=== PATIENT | female | born 1945 | race Caucasian/White ===

== ENCOUNTER 2017-10-24 19:13 | Emergency (ER) | payer MEDICARE, OTHER ==
[~2017-10-24] VITALS: Ht 165.1 cm; Wt 90.7 kg
[~2017-10-24 19:13] MED LIST: ACETAMINOPHEN325 M1 PO; ASPIRIN EC81 MG PO; ATENOLOL25 MG PO; CRUTCH1 EACH MISC; FLAGYL500 MG PO; IBUPROFEN200 MG PO; MULTI-DAY VITA1 EACH PO; NITRO-BID1 INCH TOP; NITROSTAT0.4 MG SL; NORCO 5-325 TA1 EACH PO; PONARIS NASAL E30 ML PO
[2017-10-24] MEDS ORDERED: SYNTHROID50 MCG PO (19:50)
[2017-10-24] MEDS ORDERED: AUGMENTIN 875-1 EACH PO (21:12)
== END 2017-10-24 21:20 | disposition home or self-care (01) ==
LOC: ED 19:13
DX: K11.20 Sialoadenitis, unspecified (principal); I10 Essential (primary) hypertension; Z87.891 Personal history of nicotine dependence; Z88.5 Allergy status to narcotic agent; Z79.82 Long term (current) use of aspirin; Z79.899 Other long term (current) drug therapy
CPT/HCPCS: 99283

== ENCOUNTER 2017-11-25 17:21 | Observation (INO) | payer MEDICARE, OTHER ==
[~2017-11-25] VITALS: Ht 165.1 cm; Wt 93.1 kg
[~2017-11-25 17:21] MED LIST changes: +AUGMENTIN 875-1 EACH PO; +SYNTHROID50 MCG PO
--- NOTE | 2017-11-25 17:49 | EKG ---
[facility] [address] [place], [place] [address] Signed Normal sinus rhythm Normal ECG No previous ECGs available Confirmed by CHACE BULLOCK MD ([id number]) on 11/25/2017 5:49:15 PM Electronically Signed By: CHACE BULLOCK MD 11/25/17 1749 PATIENT NAME: KMKARLY V Electrocardiogram DATE OF : 49 PHYSICIAN: CHACE BULLOCK MD REPORT #: [id number] REPORT IS CONFIDENTIAL AND NOT TO BE RELEASED WITHOUT AUTHORIZATION
[2017-11-26] MEDS ORDERED: TORSEMIDE5 MG PO (13:39)
[2017-11-26] MEDS ORDERED: LEVOTHYROXINE125 MCG PO (13:50)
== END 2017-11-26 16:30 | disposition home or self-care (01) ==
LOC: ED 17:21 → CCU 17:22
PROVIDERS: ADMIT Internal Medicine
DX: R07.2 Precordial pain (principal); J44.9 Chronic obstructive pulmonary disease, unspecified; R09.02 Hypoxemia; J98.11 Atelectasis; I71.9 Aortic aneurysm of unspecified site, without rupture; I10 Essential (primary) hypertension; E03.9 Hypothyroidism, unspecified; M51.36 Other intervertebral disc degeneration, lumbar region; M19.90 Unspecified osteoarthritis, unspecified site; Z91.14 Patient's other noncompliance with medication regimen; Z79.1 Long term (current) use of non-steroidal anti-inflammatories (NSAID); Z79.82 Long term (current) use of aspirin; Z79.899 Other long term (current) drug therapy; Z87.891 Personal history of nicotine dependence; Z88.5 Allergy status to narcotic agent; Z88.8 Allergy status to other drugs, medicaments and biological substances; Z82.49 Family history of ischemic heart disease and other diseases of the circulatory system
CPT/HCPCS: 36415; 71045; 71260; 80048; 80053; 84484; 85025; 85379; 93005; 93010; 94761; 96372; 96374; 96375; 96376; 99285; G0378; J1650; J1885; J2060; J2405; J7030; Q9967

== ENCOUNTER 2018-12-13 12:13 | Emergency (ER) | payer MEDICARE, OTHER ==
[~2018-12-13] VITALS: Ht 165.1 cm; Wt 90.7 kg
[~2018-12-13 12:13] MED LIST changes: +LEVOTHYROXINE125 MCG PO; +PREDNISONE50 MG PO; +TORSEMIDE5 MG PO
--- OUTSIDE RECORDS SUMMARY | 2018-12-13 12:16 | XMS ---
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 ERobert VISIT COUNT (12 MO.) 2 STEW Jacinto TOTAL 2 NOTE: Visits indicate total known visits. 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
[2018-12-13] MEDS ORDERED: FLAGYL500 MG PO (18:18)
[2018-12-13] MEDS ORDERED: ONDANSETRON ODT8 MG PO (18:18)
[2018-12-13] MEDS ORDERED: CIPRO500 MG PO (18:18)
== END 2018-12-13 18:27 | disposition home or self-care (01) ==
LOC: ED 12:13
DX: K57.32 Diverticulitis of large intestine without perforation or abscess without bleeding (principal); I10 Essential (primary) hypertension; J44.9 Chronic obstructive pulmonary disease, unspecified; Z87.891 Personal history of nicotine dependence; Z90.710 Acquired absence of both cervix and uterus; Z90.49 Acquired absence of other specified parts of digestive tract; Z88.5 Allergy status to narcotic agent; Z88.8 Allergy status to other drugs, medicaments and biological substances; Z79.899 Other long term (current) drug therapy
CPT/HCPCS: 74177; 80053; 81001; 83690; 85025; 96361; 96374; 99284-25; J2405; J7030; Q9967

== ENCOUNTER 2021-04-21 09:38 | Inpatient (IN) | payer MEDICARE, OTHER ==
[~2021-04-21] VITALS: Ht 165.1 cm; Wt 92.4 kg
[~2021-04-21 09:38] MED LIST changes: +ADULT ASPIRIN R81 MG PO; -ASPIRIN EC81 MG PO; +BEVESPI AEROS10.7 GM INH; +CIPRO500 MG PO; +IPRAT-ALBUT 0.5-3 ML INH; +ONDANSETRON ODT8 MG PO; +PREDNISONE20 MG PO; +TORSEMIDE10 MG PO; +TRUNEB NEBULIZ1 EACH INH
--- OUTSIDE RECORDS SUMMARY | 2021-04-21 09:42 | XMS ---
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 Kareen VISIT COUNT (12 MO.) 1 STEW Jacinto TOTAL 1 NOTE: Visits indicate total known visits. ED/UCC VISIT TRACKING (12 MO.) 04/21/2021 09:39 [facility] [place] TYPE: Emergency COMPLAINT: - NAUSEA, VOMITING INPATIENT VISIT TRACKING (12 MO.) No inpatient visits to display in this time frame [email or web address]
--- NOTE | 2021-04-21 16:38 | NUR ---
RT CALLED AND PATIENT PLACED ON HI-FLOW OXYGEN VIA NASAL CANNULA. PT NOW ON 8 L AND SP02 IS 92%. PT ABLE TO TAKE HER MEDICATIONS WITHOUT DIFFICULTY. PRN TYLENOL TO BE GIVEN FOR HEADACHE.
--- NOTE | 2021-04-21 18:16 | NUR ---
PATIENT RESTING IN HER ROOM AND CURRENTLY 94% ON 8 L HIGH FLOW. LABS TO BE DRAWN AT 1900 FOR BMP. NEW IV TO BE STARTED. PT REMAINS ON FLUID RESTRICTION.
--- NOTE | 2021-04-21 19:35 | NUR ---
REPORT RECEIVED FROM DAY SHIFT RN. PT IS AWAKE IN BED WATCHING TV, DENIES NEEDS AT THIS TIME.
--- NOTE | 2021-04-21 20:49 | NUR ---
ASSESSMENT COMPLETED. BILATERAL LUNG BASES ARE DIMINISHED WITH FINE CRACKLES NOTED IN THE LEFT LOWER LOBE. PT STATES SHE HAS EXERTIONAL SHORTNESS OF BREATH WHEN GETTING UP AND DOWN TO THE COMMODE. AT REST, RR=16. PT GIVEN PRN TYLENOL FOR H/A (SEE EMAR). DISCUSSED PLAN OF CARE FOR EVENING, CALL LIGHT WITHIN REACH. NO FURTHER NEEDS.
--- NOTE | 2021-04-21 22:30 | NUR ---
PT HAD SHORT BURST OF PSVT, HR FROM 80'S UP TO 130'S, PT LYING IN BED, DID NOT NOTICE ANY SYMPTOMS. DR KRUEGER INFORMED, WILL INCREASE METOPROLOL DOSE.
--- NOTE | 2021-04-21 23:15 | NUR ---
IN TO GIVE ADDITIONAL LOPRESSOR AND DO ASSESSMENT. PT DENIES SOB, ALTHOUGH SHE DOES APPEAR TO BE SOB. SPO2 88% ON 8L, TURNED O2 UP TO 10L AND SATS UP TO 90%. DISCUSSED PRONING WITH PT, ASSISTED HER TO A SIDE LYING POSITION.
--- NOTE | 2021-04-22 01:16 | NUR ---
PT RESTING WITH EYES CLOSED, RESP EVEN UNLABORED, RR 15 SPO2 92% ON 10L HIGH FLOW NC. HR 65.
--- NOTE | 2021-04-22 02:21 | NUR ---
PT CALLS FOR PAIN MEDICATION FOR HEADACHE 3/10 TYLENOL GIVEN.
--- NOTE | 2021-04-22 02:40 | NUR ---
IN TO CHECK ON PT, PT REPORTS DIFFICULTY SLEEPING AND REQUESTS MEDICATION, ALSO STATES WHEN SHE TAKES MELATONIN SHE FEELS NAUSEATED. CALL TO DR KRUEGER, ORDER GIVEN FOR MELATONIN. ZOFRAN GIVEN WITH MED.
--- NOTE | 2021-04-22 03:31 | NUR ---
PT SATS HAVE BEEN 88-90%, OXYGEN TURNED UP TO 12L ON HIGH FLOW NASAL CANNULA.
--- NOTE | 2021-04-22 04:00 | NUR ---
PT FINALLY ASLEEP, WILL LET PT SLEEP FOR NOW.
--- NOTE | 2021-04-22 05:30 | NUR ---
IN TO GIVE LOPRESSOR AND DRAW AM LABS. PT HAD BEEN SLEEPING, STATES SHE GOT TWO HOURS OF SLEEP. WILL TRY TO GET BACK TO SLEEP, STATES HEADACHE GONE AFTER TYLENOL, NO REQUESTS.
--- NOTE | 2021-04-22 07:35 | NUR ---
REPORT REC'D FROM FILM HISTORIAN. PT REMAINS ON 12 L NC. PT HAD A LARGE VOID AT THIS TIME AND ALSO A LOOSE BM. PT THINKS THAT THE MELATONIN SHE HAD CAUSED HER DIARRHEA.
--- NOTE | 2021-04-22 08:15 | NUR ---
PATIENT AWAKE IN BED, BREAKFAST DELIVERED. FACE AND HANDS WASHED. VITALS CHARTED. CALL LIGHT IN REACH.
--- NOTE | 2021-04-22 08:34 | NUR ---
IN PATIENT'S ROOM FOR ASSESSMENT AND VP [employer]. PT UP TO BSC BUT UNABLE TO VOID. PT IS ON 11 L HIGH FLOW NASAL CANNULA. PT ENDORSES THAT SHE IS SHORT OF BREATH WITH ACTIVITY, "BUT I HAVE COPD, SO THAT DOESN'T HELP IT MUCH." ONCE PATIENT IS BACK IN BED, SHE RESTS WELL. PT REQUESTING A TYLENOL. PT HELPED BACK INTO NEW CLEAN PAJAMAS THAT HER DROPPED OFF FOR HER AT THE FRONT DOOR. HR IN THE 70s. LUNG SOUNDS HAVE FINE CRACKLES IN MID TO LOWER BASES AND ALSO EXP WHEEZES HEARD IN UPPER LUNGS. PT TO HAVE NEB TX. CONTINUE TO MONITOR.
[2021-04-22] MEDS ORDERED: LISINOPRIL-HCT1 EACH PO (11:00)
[2021-04-22] MEDS ORDERED: COMBIVENT RESPIM4 GM INH (11:00)
[2021-04-22] MEDS ORDERED: METOPROLOL SUC200 MG PO (11:01)
[2021-04-22] MEDS ORDERED: ROSUVASTATIN CA10 MG PO (11:01)
[2021-04-22] MEDS ORDERED: FREESTYLE LITE1 EAC1 (11:03)
--- NOTE | 2021-04-22 11:20 | NUR ---
PATIENT FINISHED HER 1200 ML D5 WATER FLUID BOLUS TO CORRECT HER SODIUM LEVELS. PATIENT NOW UP IN CHAIR RESTING. PT REMAINS ON 11 L HIGHFLOW. PT BEING GIVEN A PARTIAL SHOWER WITH TECHNICIAN TEST SYSTEMS AND GETTING HER HAIR WASHED. LUNCH ORDERED FOR PATIENT. PT'S LABS TO BE DRAWN AT [phone].
--- NOTE | 2021-04-22 12:04 | NUR ---
PATIENTS HAIR WASHED AND DRIED IN BR WHILE SITTING IN BATHROOM CHAIR. NC IN PLACE. PATINET TOLERATED WELL. BACK TO BED, LINENS CHANGED AND VITALS CHARTED. CALL LIGHT IN REACH
--- NOTE | 2021-04-22 12:58 | NUR ---
BLOOD DRAWN FROM IV SITE FOR 1230 BMP. PT TOLERATED WELL.
--- NOTE | 2021-04-22 14:00 | NUR ---
VITALS CHARTED. PATIENT HAS NO OTHER NEEDS AT THIS TIME
--- NOTE | 2021-04-22 16:45 | NUR ---
ASSESSMENT AND VITALS COMPLETE. PT RESTING IN BED ON 11L NC. PT STATES SHE ISN'T SHORT OF BREATH, BUT THAT SOMETIMES HER CHEST HURTS WITH DEEP BREATHS. PT ABLE TO SPEAK FULL SENTENCES W/O DIFFICULTY. ENCOUARGED PATIENT TO CONTINUE REPORTING HOW SHE FEELS TO HER NURSING STAFF. CALL LIGHT WITHIN REACH. PT WATCHING TV AT THIS TIME AND IN GOOD SPIRITS.
--- NOTE | 2021-04-22 16:54 | NUR ---
RT CALLED TO PLACE PATIENT ON CPAP AND VAPOTHERM PER DR. MONIQUE'S REQUEST.
--- NOTE | 2021-04-22 17:40 | NUR ---
RT WAS IN ROOM AND PLACED PATIENT ON VAPOTHERM AT 30L AND 70%. PATIENT TELLING RT WHEN HE WAS IN THE ROOM THAT SHE DIDN'T THINK SHE WAS GOING TO BE ABLE TO STAND WEARING A MASK OVER HER FACE. AFTER THIS, RT LEFT THE ROOM AND NOTE EVEN 5 MINUTES LATER, PATIENT CALLED AND THIS RN RESPONDED TO HER CALL LIGHT. PT NOTED TO BE TREMULOUS, TEARFUL, AND STATES, "I JUST CAN'T STAND THIS FLOW OF AIR. IT'S TOO MUCH. AND THE TUBING IS TOO HEAVY. THIS MUCH PRESSURE IS GOING TO CAUSE SO MANY BLOODY NOSES, AND I'VE ALREADY HAD A BLOODY NOSE." PATIENT SEEMED TO BE BECOMING MORE AND MORE ANXIOUS, AND THEREFORE PATIENT WAS TAKEN OFF THE VAPOTHERM AND PLACED BACK ON THE HIGH FLOW WALL NC AT 11 L. PATIENT THEN DISCUSSED WITH THIS RN SOME TRAUMATIC EVENTS THAT HAVE HAPPENED TO HER IN HER PAST, AND THAT SHE FEELS THE ANXIETY COMING BACK ON WHEN SHE HAS ANYTHING RESTRICTIVE ON HER FACE. SAT AND TALKED WITH PATIENT FOR A WHILE ABOUT THIS AND ATTEMPTED TO CALM HER AND REASSURE HER THAT SHE CAN REFUSE ANY TREATMENT, AND IF SHE DOESN'T WANT TO WEAR THE VAPOTHERM OR CPAP, THAT SHE MAY REFUSE. DISCUSSION ALSO HAD WITH PATIENT ABOUT HER ILLNESS, AND THE FACT THAT WHEN PEOPLE WORSEN WITH ANY RESPIRATORY ILLNESS, THAT BEFORE SOMEONE IS PLACED ON A VENTILATOR, THAT VAPOTHERM AND CPAP/BIPAP ARE MODALITIES THAT ARE EMPLOYED TO HELP THE PATIENT. PATIENT STILL STATES THAT SHE WOULD WANT TO BE ON A VENTILATOR IF SHE NEEDED TO BE. AGAIN, ATTEMPTS WERE MADE TO HELP PATIENT CALM DOWN. DISCUSSED WITH PATIENT AWAKE PRONING AND THE BENEFITS THAT THIS PROVIDES TO HER LUNGS, AND THAT SITTING UPRIGHT IN BED ISNT' ALWAYS THE BEST POSITION FOR HER LUNGS. PATIENT STATES, "I CAN TRY THAT TONIGHT MAYBE, BUT I DON'T WANT TO DO THAT RIGHT NOW SINCE I CAN'T WATCH TV, AND IF I CAN'T WATCH TV I'LL GO NUTS." AFTER LEAVING ROOM, DR. MONIQUE CALLED TO UPDATE ON THIS AND HOW THE PATIENT REACTED TO VAPOTHERM/CPAP. PT CURRENTLY 90% ON 11L. WILL CONTINUE TO MONITOR.
--- NOTE | 2021-04-22 20:10 | NUR ---
IN TO DO ASSESSMENT, HS MEDS, AND GIVE PRN TYLENOL. LUNGS DIM N BASES. ON 11L HIGH FLOW NASAL CANNULA. NO FURTHER NEEDS.
--- NOTE | 2021-04-22 22:00 | NUR ---
UP TO VOID/ BACK TO BED.
--- NOTE | 2021-04-23 00:50 | NUR ---
PT CALLS TO USE BSC, ASSESSMENT DONE UNCHANGED FROM PREVIOUS. NO C/O
--- NOTE | 2021-04-23 03:40 | NUR ---
PT UP TO BSC TO VOID, ASSESSMENT DONE. REQUESTS TYLENOL FOR HEADACHE.
--- NOTE | 2021-04-23 05:30 | NUR ---
PT RESTING, EYES CLOSED, HR 60 RR 20.
--- NOTE | 2021-04-23 07:06 | NUR ---
AWAKENS EASILY FOR THYROID PILL. STATES SHE DOES NOT HAVE AN APPETITE FOR BREAKFAST. DENIES PAIN.
--- NOTE | 2021-04-23 08:03 | NUR ---
vitals taken, coffee and water given to pt. no other needs at this time.
--- NOTE | 2021-04-23 09:05 | NUR ---
THIS RN IN TO ASSESS PT AND ADMINISTER ORDERED MEDICATIONS. PT ALERT AND ORIENTED X 3 ON 11 L HIGH FLOW NC. PT SPO2 AT 92%. PT DENIES HAVING PAIN AT THIS TIME AND IS VISIBLY SHAKING. PT DENIES CHILLS AND STATES SHE CAN BE SHAKY WHEN SHE IS NERVOUS. MEDICATIONS ADMINISTERED AT THIS TIME, IV REMDESIVIR NOW INFUSING AT ORDERED RATE. PT ASSESSED AT THIS TIME AND LUNGS ARE CLEAR IN UPPER LOBES AND CLEAR/DIM IN LOWER LOBES. PT REPORTS NO FURTHER NEEDS AT THIS TIME AND IS NOW EATING BREAKFAST AND ON THE PHONE. WILL CONTINUE PLAN OF CARE. CALL LIGHT IN REACH, BED IN LOWEST POSITION.
--- NOTE | 2021-04-23 10:33 | NUR ---
pt. requested a bible. margarine churn operator took one in to pt. no other needs at this time
--- NOTE | 2021-04-23 10:43 | NUR ---
PATIENT NOTED TO BE DESATURING SOME, AND CHECKED ON PATIENT. PATIENT WAS READJUSTING HER OXYGEN, AND WAS TEARFUL. PT STATES SHE IS VERY WORRIED AND ANXIOUS ABOUT HER , WHO IS IN THE ER RIGHT NOW BEING EVALUATED. INFORMED PATIENT THAT I WOULD BE HAPPY TO CALL DOWN TO ER AND SEE IF THE PATIENT WAS OKAY WITH HIS HAVE ANY INFORMATION REGARDING HOW HE IS DOING. REFRESH TECHNICIAN CALLS THIS RN BACK AND GIVES UPDATE ON PATIENT'S AFTER HE STATED IT WAS OKAY TO SHARE HIS INFORMATION. PT THANKFUL FOR THIS INFO. P NOW RESTING, ON 11 L STILL, AND SP02 IS 93%. CONTINUE TO MONITOR.
--- NOTE | 2021-04-23 11:17 | NUR ---
ATTEMPTED TO CONTACT PATIENT VIA PHONE DUE TO COVID PROCAUTIONS, NO ANSWER. WILL ATTEMPT TO CONTACT PATIENT AT A LATER TIME.
--- NOTE | 2021-04-23 11:32 | NUR ---
DR. MONIQUE IN TO SEE PATIENT. NO CHANGES TO PLAN OF CARE OR TREATMENT AT THIS TIME.
--- NOTE | 2021-04-23 12:19 | NUR ---
PATIENT IN GOOD SPIRITS AND VERY EXCITED THAT HER IS GOING TO BE ABLE TO COME IN. PATIENT STATES, "I DON'T THINK ILL BE HERE MUCH LONGER, DR. MONIQUE SEEMS ENCOURAGED." DISCUSSED WITH PATIENT HOW MUCH OXYGEN SHE IS NEEDING AND SHE STATES, "I'M NORMALLY IN THE 70-80s, USUALLY GET UPSET WHEN IT GETS UP TO THE 90s." CLARIFIED WITH PATIENT IF SHE WAS IN FACT TALKING ABOUT HER OXYGEN SATURATIONS AND SHE SAID YES. HIGH FLOW TURNED DOWN TO 8 L AND WILLC ONTINUE TO MONITOR.
--- NOTE | 2021-04-23 13:32 | NUR ---
PATIENT EATING LUNCH WITH HER IN ROOM. PT CONTINUES ON 8 L HIGH FLOW AND TOLERATING THIS WELL. PT IN VERY GOOD SPIRITS ABOUT HER BEING ABLE TO VISIT.
--- NOTE | 2021-04-23 13:53 | NUR ---
THIS RN IN TO ROOM AT THIS TIME, PT STATED HER , WHO IS A VISITOR, WAS SHAKING. PT'S SITTING IN WHEELCHAIR AND VISIBLY SHAKING. WAS ALERT AND ORIENTED AND DENIED HAVING CHILLS. ASKED IF HE WISHED TO RETURN TO THE E.R, STATED YES. STEPHANIE GUILLENA ASSISTED IN TRANSFERRING PT'S BACK TO THE E.R. PT CHECK ON AFTERWARDS, PT REPORTS NO NEEDS AT THIS TIME. PT DENIES SOB WHEN ASKED AND IS SITTING UP IN BED ALERT AND ORIENTED. WILL CONTINUE PLAN OF CARE. CALL LIGHT IN REACH, BED IN LOWEST POSITION.
--- NOTE | 2021-04-23 13:57 | NUR ---
assistant education director assisted pt to bedside commode
--- NOTE | 2021-04-23 14:22 | NUR ---
lubricating specialist took pt. toothpaste and tooth brush. pt stated she will brush in after her phone call. no other needs at thist geronimo
--- NOTE | 2021-04-23 17:14 | NUR ---
THIS RN IN TO BRING PT HER DINNER. PT LAYING IN BED AWAKE AND ALERT 6L O2 NC. SPO2 AT 90%. PT REPORTS NO NEEDS AT THIS TIME AND IS NOW EATING HER LUNCH. CALL LIGHT IN REACH, BED IN LOWEST POSITION, WILL CONTINUE PLAN OF CARE.
--- NOTE | 2021-04-23 19:30 | NUR ---
REPORT RECEIVED FROM TABBY BERMAN. PT IN BED, WATCHING TV, DENIES NEEDS.
--- NOTE | 2021-04-23 20:29 | NUR ---
ANTONELLA Rey called to say pt wanted someone to pray with her. I spoke with pt who indicated she was feeling alone, lonely, sad and scared. We talked of abiding presence of God, and of her family and her own manager stone who is currently unavailable. We recited together psalm 23, which pt stated was her favorite. We prayed together for comfort and peace. Left prayer shawl with RN to take into pt when next she went into the room.
--- NOTE | 2021-04-23 21:00 | NUR ---
IN TO DO ASSESSMENT AND HS MEDS, PRAYER SHAWL GIVEN TO PT AND SHE IS VERY APPRECIATIVE, CONTINUES TO BE CONCERNED ABOUT . PT IS ON 6L CURRENTLY WITH SPO2 95%, LUNGS SOUND CLEAR WITH EXP WHEEZES ON RIGHT SIDE. TYLENOL GIVEN PER REQUEST.
--- NOTE | 2021-04-23 23:44 | NUR ---
PT AWAKE IN ROOM, CONCERNED ABOUT , UP TO BSC THEN BACK TO BED.
--- NOTE | 2021-04-24 00:50 | NUR ---
PT SUDDENLY TOOK OXYGEN OFF, SATS WENT DOWN TO 76-77%. PT WAS VERY UPSET, STATED THAT THE OXYGEN WAS HURTING HER NOSE AND SHE HAS HAD PREVIOUS TRAUMA TO NOSE, "IM GOING TO HAVE A NERVOUS BREAKDOWN", "I WANT TO , I DONT WANT TO WEAR THIS ANYMORE". HAD LONG DISCUSSION WITH PT ABOUT WHAT SHE WAS FEELING, SHE IS FEELING LONELY "NOBODY CARES ABOUT ME". EVENTUALLY PT AGREED TO WEAR THE REGULAR NASAL CANNULA WHICH WAS NOT IRRITATING, SLOWLY TITRATED UP TO 4L, SPO2 CAME UP TO 87-88%. PT ALSO EVENTUALLY BECAME MORE POSITIVE ABOUT LIFE AND HER SITUATION AND WAS NOT UPSET. LIED BACK DOWN AND WILL NOW TRY TO GO TO SLEEP.
--- NOTE | 2021-04-24 04:15 | NUR ---
IN TO CHECK ON PT, PT AWAKE, STATES SHE HAS NOT BEEN ABLE TO GET TO SLEEP, TYLENOL GIVEN FOR HEADACHE.
--- NOTE | 2021-04-24 06:30 | NUR ---
PT AWAKE IN ROOM, IN A BETTER MOOD THIS MORNING, COFFEE GIVEN PER REQUEST.
--- NOTE | 2021-04-24 07:30 | NUR ---
REPORT RECIEVED. PATIENT IS SITTING UP IN BED. RESP THERAPY IN ROOM.
--- NOTE | 2021-04-24 09:09 | NUR ---
SITTING UP IN BEDE TO EAT BREAKFAST. DENIES PAIN, FEELS ANXIOUS. ASSESSMENT DONE. ROUTINE MEDICATIONS GIVEN. O2 AT 10 L HIGH FLOW IN [place]. PATIENT DENIES SHORTNESS OF BREATH.
--- NOTE | 2021-04-24 11:20 | NUR ---
c/o increased shortness of breath. RESP THERAPY NOTIFIED, NEB TREATMENT TO BE GIVEN.
--- NOTE | 2021-04-24 12:20 | NUR ---
ASSESSMENT DONE. IS CANDICE. PATIENT STATES SHE HAD AN ARGUMENT WITH HER OVER THE PHONE. PATIENT INDICATES SHE IS WORRIED ABOUT WHAT WILL HAPPEN TO HER WHEN SHE IS DISCHARGED HER IS GOING TO STAY WITH HIS [id number] WHEN HE IS DISCHARGED FROM HOSPIAL TODAY. TALKED WITH PATIENT ABOUT THIS, MORE CALM AFER OUR VISIT.
--- NOTE | 2021-04-24 14:15 | NUR ---
SITTING UP IN BED WATCHING TV, REMAINS ANXIOUS. NO FUTHER CAHNGES.
--- NOTE | 2021-04-24 16:15 | NUR ---
Update from RN, pt remains on high flow 02 at 92%. Pt was upset and has concerns for discharge and who will care for her as spouse dcd to home today with daughter in law. Rn prefers I don't speak with pt as she has anxiety and was upset earlier. She was able to settle pt with letting her know we would make sure she has a safe dc. Will follow up with pt when she is less ill.
--- NOTE | 2021-04-24 18:45 | NUR ---
HAS HAD POOR APPETITE ALL DAY. HAS BEEN VERY EMOTIONAL REGARDING DUE TO NOT RECIEVING PHONE CALLS FOR FRIENDS. O2 DECREASED TO 9 L NC.
--- NOTE | 2021-04-24 19:15 | NUR ---
REPORT RECIEVED, CARE OF PATIENT ASSUMED AT THIS TIME. PT DENIES NEEDSSPO2 = 93 PERCENT. CALL LIGHT WITHIN REACH.
--- NOTE | 2021-04-24 20:50 | NUR ---
MEDICATIONS ADMINISTERED. ASSESSMENT COMPLETED. PT COMPLAINS OF SHORTNESS OF BREATH. DISCUSSED INCREASING OXYGEN BUT PT REFUSES. CURRENTLY 93 PERCENT ON 10 L NC. PLAN OF CARE ESTABLISHED. WILL CONTINUE TO MONITOR.
--- NOTE | 2021-04-24 22:46 | NUR ---
pt states the nasal cannula is bothering her nose and does not want to wear it. pt agreeable to turning down the flow rate. now on 8 l nc, saturations at 89 percent. Pt given prn medications for sleep. will continue to monitor.
--- NOTE | 2021-04-25 00:44 | NUR ---
PT SLEEPING ON RIGHT SIDE, BREATHING EVEN CHRYSTAL UNLABORED RR=18. SPO2 = 96% ON 6L NC. CALL LIGHT AND PERSONAL BELONGINGS WITHIN REACH. WILL CONTINUE TO MONITOR.
--- NOTE | 2021-04-25 02:30 | NUR ---
PT SLEEPING. BREATHING EVEN AND UNLABORED. SPO2 =92%. RR= 20. CALL LIGHT WITHIN REACH. NO FURTHER ASSESSED NEEDS AT THIS TIME.
--- NOTE | 2021-04-25 05:10 | NUR ---
IN ROOM TO COMPLETE ASSESSMENT AND DRAW LABS. PT REPORTS HAVING SLEPT WELL THROUGH THE NIGHT. SPO2 =94% ON 7 L NC. RR=20-24 AT REST. CALL LIGHT WITHIN REACH. PT DENIES FURTHER NEEDS AT THIS TIME.
--- NOTE | 2021-04-25 08:00 | NUR ---
ASSESSMENT DONE. PATIENT IS IN GOOD SPIRITS TODAY. STATES SHE SLEPT VERY WELL LAST NIGHT.
--- NOTE | 2021-04-25 09:00 | NUR ---
ROUTINE MEDICATIONS GIVEN.
--- NOTE | 2021-04-25 10:30 | NUR ---
NO FUTHER CHANGES. SITTING UP IN BED WATCHING TV.
--- NOTE | 2021-04-25 11:48 | NUR ---
SITTING UP IN BED EATING LUNCH. PATIENT STATES SHE IS FEELING BETTER TODAY. O2 AT 7 LITERS. WILL BE TRANSFERRED TO MEDICAL FLOOR TODAY. IS ON TELE #2.
--- NOTE | 2021-04-25 12:30 | NUR ---
REPORT TO MED-SURG. TO MED-SURG VIA BED.
--- NOTE | 2021-04-25 12:54 | NUR ---
PT TRANSFERED TO 114 VIA BED, PT ALERT AND ORIENTED
--- NOTE | 2021-04-25 13:57 | NUR ---
Pt lives in [place] in a 1 story home with a ramp with her spouse. He discharged yesterday to daughter in laws home. He will return home when pt is discharged. Pt uses a cane, scooter, nebulizer, and 02 at home. Pt was using [facility] which sold to [employer]. Pt would like to change to [employer] and info given. 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 States they are financially well off. Plans on dc to home when discharged. She and spouse will assist each other. Daughter in law, Radha, will help with errands and shopping if needed.
--- NOTE | 2021-04-25 16:37 | NUR ---
PT MAINTAINING ON 7L OXYGEN AT 90-93% AT REST AND RECOVERS WELL AFTER ACTIVITY. SHE IS JUST BACK TO RECLINER AFTER UP TO USE BSC WITH STANDBY ASSIST. VOIDED 600ML CLEAR YELLOW URINE. SHE HAS REQUESTED FLUIDS TO EXCEED HER FLUID RESTRICTION THAT HAS BEEN DENIED. PT COOPERATIVE WITH THIS. NO ISSUES WITH ANXIETY SINCE TRANSFER OTHER THAN WHILE TAKING B/P WHEN THE CUFF TIGHTENED, PT WAS CONSOLED EASILY.
--- NOTE | 2021-04-25 18:12 | NUR ---
PATIENT SITTING UP IN CHAIR EATING DINNER. VITALS AND I&OS CHARTED, CALL LIGHT IN REACH, NO OTHER NEEDS AT THIS TIME
--- NOTE | 2021-04-25 18:27 | NUR ---
PT TRANSFERED TO [facility] FROM [facility] TODAY, HAS BEEN UP TO RECLINER, UPTO BEDSIDE COMMODE FREQUENT, SHE IS ON 7L OXYGEN SATURATIONS MONITOR VIA TELEMETRY. SHE IS A ONE PERSON STANDBY ASSIST TO TRANSFER. SHE DOES NOT REPORT ANY PAIN, SHE HAS DYSPNEA WITH ACTIVITY, NO ISSUES WITH ANXIETY THIS SHIFT AFTER FIRST V/S AFTER TRANSFER. HAS BEEN TALKING ON PHONE FREQUESTLY THIS SHIFT.
--- NOTE | 2021-04-25 19:05 | NUR ---
SHIFT REPORT RECEIVED FROM JOHN BERMAN. PT UP IN CHAIR NC @ 7L, SPO2 92%. NO NEEDS AT THIS TIME. CALL LIGHT IN REACH.
--- NOTE | 2021-04-25 21:18 | NUR ---
ASSESSMENT, VS AND I&O COMPLETED. PT APPEARS ANXIOUS, THERAPUTIC COMMUNICATION PROVIDED, ALL ACTIONS AND MEDS EXPLAINED. GCS 15, A&O X4. SPO2 92% ON 7L NC. LUNGS DIMINISHED IN ALL LOBES WITH CRACKLES IN LOWER LOBES. ABD SOFT, NONTENDER, BOWEL TOBES ACTIVE. PT HAS A SNALL RED AREA ON TOP OF HANDS THAT SHE STATES BEGAN YESTERDAY, AREA CLEANED, EDUCATION PROVIDED. CMS INTACT. HEART TONES REGUALR. SCHEDULED MEDS PROVIDED. SLEEP MED PROVIDED. IV WNL, CDI, FLUSHED WELL. EDUCATION PROVIDED CONCERNING FLUID RESRICTION, ICE WATER PROVIDED. NO OTHER NEEDS AT THIS TIME. CALL LIGHT IN REACH.
--- NOTE | 2021-04-25 22:59 | NUR ---
PT CALLS TO USE BSC, SBA. BACK TO BED. NO OTHER NEEDS. CALL LIGHT IN REACH.
--- NOTE | 2021-04-26 | NUR ---
PT RESTING IN BED. SPO2 92% ON 7L NC. CALL LIGHT IN REACH.
--- NOTE | 2021-04-26 02:00 | NUR ---
PT RESTING IN BED, EYES CLOSED SPO2 98% ON 7L NC. CALL LIGHT IN REACH.
--- NOTE | 2021-04-26 03:48 | NUR ---
PT SPO2 HAS BEEN IN HIGH 90s MOST OF THE NIGHT. NC O2 DECREASED TO 5L, SPO2 MAINTAINS. 95%
--- NOTE | 2021-04-26 04:50 | NUR ---
ASSESSMENT, VS AND I&O COMPLETED. PT UP TO BSC AND BACK TO BED, SBA. PT HAS DYSPNEA WITH ACTIVITY, SPO2 DROPS TO 89% BUT RECOVERS QUICKLY TO LOW 90s. LUNGS ARE COARSE IN ALL LOBES, NC @ 5L. REDNESS TO TOP OF LEFT HAND UNCHANGED. SKIN, WARM, DRY, APPROPRIATE COLOR. NO OTHER NEEDS. CALL LIGHT IN REACH.
--- NOTE | 2021-04-26 06:16 | NUR ---
PT SLEPT WELL THIS SHIFT. SPO2 RANDING IN THE HIGH 90s ON 7L NS, PT MOVED DOWN TO 5L NC AND HAS MAINTAINED SPO2 IN THE LOW 90s THIS MORNING. PT DOES HAVE SOB WITH ACTIVITY AND SPO2 DECREASES TO UPPER 80s BUT RECOVERS WITHIN A FEW MINUTES TO CURRENT BASELINE OF 92%-94% ON 5L. PT HAS A SMALL BRUISE AND RED AREA ON THE TOP OF THE LEFT HAND, CLEANED AND OPEN TO AIR. IV WNL, TOLERATED WELL. VSS. UOS. LUNGS ARE COARSE IN ALL LOBES. CMS INTACT. PT DENIES NAUSEA, LOOSE STOOLS AND HAS BEEN AFEBRILE THIS SHIFT.
--- NOTE | 2021-04-26 06:48 | NUR ---
SCHEDLED MED PROVIDED. PT UP TO BSC AND BACK TO BED, SBA. NO OTHER NEEDS AT THIS TIME. CALL LIGHT IN REACH. PT EDUCATION ABOUT FLUID RESTRICTION PROVIDED. PT VERBALIZES UNDERSTANDING.
--- NOTE | 2021-04-26 07:30 | NUR ---
Shift report received from ANTONELLA Jacobson. Pt resting in bed safely w/ call light in reach and high flow O2 on.
--- NOTE | 2021-04-26 08:25 | NUR ---
PT IS SITTING UP IN BED EATING BREAKFAST, HIGH FLOW O2 ON AT 5L VIA NC. PT DENIES SOB AT THIS TIME. MORNING ASSESMENT COMPLETED AND SCHEDULED MEDICATIONS GIVEN PER PROVIDER ORDER. CALL LIGHT IN REACH, NO OTHER NEEDS AT THIS TIME.
--- NOTE | 2021-04-26 08:54 | NUR ---
OXIMETRY READING ON TELEMETRY IS NOT MAINTAINING ACCURATE WAVEFORM DEPITE EFFERTS TO REPOSITION AND REPLACE. BEDSIDE OXIMETRY IS PLACED WITH IMPROVED WAVEFORM READING, PT IS ON 6L OXYGEN WITH OXYGEN SATURATIONS 93-96%.
--- NOTE | 2021-04-26 10:33 | NUR ---
Pt offered to prone, but pt asked to sit up a little longer so that she could talk to her .
--- NOTE | 2021-04-26 10:51 | NUR ---
PT REORTS SHE IS WILLING TO LEAN SIDE TO SIDE, SHE SAID "I ABSOLUTLY CAN NOT LAY ON MY STOMACH AT ALL!" PT IS LAYING TO HER RIGHT SIDE, 93% ON 6L N.C. HIGH FLOW AT THIS TIME.
--- NOTE | 2021-04-26 11:00 | NUR ---
Brief visit with pt, no change in plan for dc. Feeling slightly better. Remains on .
--- NOTE | 2021-04-26 12:00 | NUR ---
PT ENCOURAGED TO LAY PRONE OR ON SIDE, BUT PT REFUSES. PROVIDER IN ROOM TO ASSES PT. PT AGREEABLE TO SITTING UP IN CHAIR. PT ON 6L O2 VIA NC, SATS 90%. CALL LIGHT IN REACH
--- NOTE | 2021-04-26 12:32 | NUR ---
PT DENIES INTEREST IN SHOWERING, SHE HAS TOOTH PASTE AND TOOTH BRUSH. SHE IS CURRENTLY SITTING UP IN SANDEEP KRISHNAMURTHY RN IN ROOM CHANGING BED LINENS.
--- NOTE | 2021-04-26 14:30 | NUR ---
SECOND ASSESMENT COMPLETED. PT SITTING UP IN CHAIR W/ CALL LIGHT IN REACH. PT REMAINS 89-90% ON 6L O2 VIA NC. PT ENCOURAGED TO LAY IN BED AND PRONE BUT PT STILL REFUSING.
--- NOTE | 2021-04-26 16:39 | NUR ---
PT IS SLEEPING IN RECLINER AT THIS TIME. OXYGEN SATURATION IS 91% ON 6L OXYGEN HIGH FLOW N.C., PT REFUSES TO PRONE, OR USE BIPAP.
--- NOTE | 2021-04-26 17:31 | NUR ---
PT CALLED FOR ASSISTANCE, SBA TO BSC. PT THEN AMBULATED IN ROOM, SATS REMAINED 90% ON 6L O2. PT SITTING UP IN CHAIR W/ CALL LIGHT IN REACH. PT EATING DINNER.
--- NOTE | 2021-04-26 17:53 | NUR ---
PT UP IN CHAIR FOR MEALS, PT ENCOURAGED THROUGHOUT THE SHIFT TO REST IN BED IN THE PRONE POSITION BUT REFUSES TO.
--- NOTE | 2021-04-26 19:05 | NUR ---
SHIFT REPORT RECEIVED FROM SANDEEP BERMAN. PT UP IN CHAIR. NC @ 6L. NO NEEDS AT THIS TIME. CALL LIGHT IN REACH.
--- NOTE | 2021-04-26 21:00 | NUR ---
ASSESSMENT, VS AND I&O COMPLETED. PT UP TO BSC AND BACK TO CHAIR, SPO2 DECLINES TO UPPER 80S WITH ACTIVITY BUT RECOVERS QUICKLY. NC @ 6L. GCS 15, A&O X4, PT APPEARS MORE RELAXED TODAY, ASKING QUESTIONS. LUNGS CLEAR IN UPPER LOBES AND CRACKLES IN LOWER LOBES. HEART TONES REGULAR. ABD SOFT, NONTENDER, BOWEL TONES ACTIVE. IV WNL, CDI, FLUSHED WELL. CMS INTACT. RED AREA ON TOP OF LEFT HAND UNCHANGED. SCHEDULED MEDS PROVIDED. NO OTHER NEEDS AT THIS TIME. CALL LIGHT IN REACH.
--- NOTE | 2021-04-26 23:07 | NUR ---
PT CALLS TO HAVE BSC EMPTIED AND TOOTHBRUSH BASIN EMPTIED, PROVIDED. PT ROOM ARRANGED FRO BED. SPO2 94% ON 6L NC. NO OTHER NEEDS AT THIS TIME. CALL LIGHT IN REACH.
--- NOTE | 2021-04-26 23:47 | NUR ---
PT RESTING IN BED, EYES CLOSED. RR EVEN, UNLABORED. CPOX 92% ON 6L NC. CALL LIGHT IN REACH.
--- NOTE | 2021-04-27 01:09 | NUR ---
PT UP TO BSC AND BACK TO BED. PT APPEARS ANXIOUS. THERAPUTIC COMMUNICATION PROVIDED. NO OTHER NEEDS. CALL LIGHT IN REACH.
--- NOTE | 2021-04-27 03:03 | NUR ---
PT RESTING IN BED, EYES CLOSED. RR EVEN, UNLABORED. SPO2 92% ON 6L NC. CALL LIGHT IN REACH.
--- NOTE | 2021-04-27 05:00 | NUR ---
PT UP TO BSC AND BACK TO BED. SPO2 DROPS INTO UPPER 80s WITH ACTIVITY ON 6L NC. UPPER LUNG LOBES CLEAR AND LOWER LOBES COURSE. IV WNL. PT CALM, ASKING QUESTIONS. CPOX 94% AT REST ON 6L NC. ASSESSMENT, VS AND I&O COMPLETED. NO OTHER NEEDS AT THIS TIME. CALL LIGHT IN REACH.
--- NOTE | 2021-04-27 06:49 | NUR ---
SCHEDULED MED PROVIDED. NO OTHER NEEDS. CALL LIGHT IN REACH.
--- NOTE | 2021-04-27 07:30 | NUR ---
SHIFT REPORT RECEIVED FROM ANTONELLA CRUZ, PT RESTING IN BED SAFELY, 6L O2 VIA NC, SATS 91%. PT DENIES SOB, CALL LIGHT IN REACH.
--- NOTE | 2021-04-27 08:48 | NUR ---
PT UP TO BATHROOM, PT VOIDED, AND IS NOW BACK IN BED RESTING SAFELY W/ CALL LIGHT IN REACH. PT SOB W/ ACTIVITY, SATS 89-90% ON 6L HIGH FLOW VIA NC. MORNING ASSESMENT COMPLETED AND SCHEDULED MEDS GIVEN PER PROVIDER ORDER. PT VERY ANXIOUS SPOUSE WAS ADMITTED TO HOSPITAL LAST NIGHT, PRN ANXIETY MEDS GIVEN PER PT REQUEST/ PROVIDER ORDER.
--- NOTE | 2021-04-27 10:00 | NUR ---
Pt WORKING W/ PT. O2 SATS 88-91% ON 6L VIA HIGH FLOW NC.
--- NOTE | 2021-04-27 10:13 | NUR ---
PHYSICAL FINISHED WORKING WITH PATIENT AT THIS TIME. ILIANA REPORTS THAT PT DID NOT MAINTAIN OXYGEN SATURATION WHILE PERFORMING EXERCISES. IN TO SEE PT AND DISCUSS SAFE DISCHARGE PLAN
--- NOTE | 2021-04-27 11:23 | NUR ---
PATIENT SITTING UP IN BED. PATIENTS FAMILY MEMBER WILL BE PICKING UP HER VAN SMITH TODAY, THIS EVENTS MANAGER WILL TAKE IT TO THE PRESS SETUP OPERATOR IN [facility]. I&OS CHARTED. LUNCH ORDERED PATIENT REFUSED SHOWER, STATES SHE JUST DOESN'T FEEL UP TO IT YET. PATIENT STATES SHE IS UNABLE TO LAY ON HER STOMACH, BUT WILL REPOSITIION TO HER SIDE FOR AWHILE. CALL LIGHT IS IN EASY REACH, NOOTHER NEEDS
--- NOTE | 2021-04-27 12:27 | NUR ---
PT IS RESTING IN BED SAFELY W/ CALL LIGHT IN REACH. O2 SATS 90% ON 6L VIA NC. PT DENIES SOB BUT C/O FEELING TIRED.
--- NOTE | 2021-04-27 13:18 | NUR ---
PT SITTING UP IN CHAIR. O2 SATS 90% ON 6L HIGH FLOW VIA NC. PT ENCOURAGED TO PRONE, BUT REFUSED TO STATING SHE DOES NOT LIKE TO LAY ON HER STOMACH.
--- NOTE | 2021-04-27 14:51 | NUR ---
SPOKE WITH PATIENT BY PHONE IN ROOM. PATIENT SOB WITH CONVERSATION. SHE STATES SHE FEELS "VERY TIRED AND MY BREATHING ISN'T EASY". HER IS STILL AT [facility] AND SHE SAYS "HE HAS BEEN TOUCH AND GO". DISCUSSED DISCHARGE PREFERENCE. SHE WANTS TO RETURN HOME, BUT SHE DOESN'T FEEL SHE IS READY TO DO THAT YET. "I DON'T THINK I CAN BE UP DOING ANYTHING MUCH". SHE HAS NO FAMILY. HER HAS FAMILY IN THE AREA BUT SHE DOES NOT THINK THEY WILL BE AVAILABLE TO HELP HER MUCH. SHE STATES THEY ARE TALKING ABOUT FINDING SOMEONE, FRIENDS OR FAMILY THAT CAN COME IN FOR SHORT TIMES BUT THEY DON'T WANT TO EXPOSE THEM TO COVID. THEY DO NOT HAVE FUNDS TO PAY FOR THIS KIND OF CARE. "I HOPE A COUPLE DAYS WILL MAKE A BIG DIFFERENCE". SHE HAS NO QUESTIONS AT THIS TIME REALLY. SHE OBVIOUSLY GETS FATIGUED EASY WITH JUST CONVERSATION. REMINDED HER TO LET NURSES KNOW IF SHE HAS CONCERNS OR QUESTIONS.
--- NOTE | 2021-04-27 15:09 | NUR ---
PT SITTING UP IN CHAIR, W/ CALL LIGHT IN REACH. PT ENCOURAGED TO PRONE, BUT REFUSED STATING SHE WANTED TO STAY SITTING UP. PT AMBULATED TO BATHROOM, VOIDED AND RETURNED TO CHAIR. PT NOTICABLY SOB W/ ACTIVITY. PT DESATED TO 87%, BUT AFTER RESTING FOR A MINUTE SATS INCREASED TO 91%.
--- NOTE | 2021-04-27 16:00 | NUR ---
RT IN ROOM TO ADMINISTER DUONEB TO PT. PT SITTING UP IN CHAIR 90% ON 8L HIGH FLOW VIA NC.
--- NOTE | 2021-04-27 17:23 | NUR ---
PATIENT SITTING UP IN CHAIR, VITALS AND I&OS CHARTED. PATIENT REQUESTED ONLY MILK FOR DINNER. CALL LIGHT IN REACH
--- NOTE | 2021-04-27 18:16 | NUR ---
PT UP IN CHAIR THROUGHOUT SHIFT. PT ENCOURAGED MULTIPLE TIMES TO PRONE, BUT PT REFUSED ADMITTEDLY STATING SHE CANNOT LAY ON HER STOMACH. O2 SATS 89-91% ON 8L HIGH FLOW VIA NC. SBA TO BATHROOM, PT NOTICABLY SOB W/ ACTIVITY AND INCREASED WORK OF BREATHING. DISCUSSED W/ PT NEED AND BENEFIT OF BEING PUT ON VAPOTHERM, BUT PT REFUSED STATING THAT THE INCREASE OF NOISE CAUSES ANXIETY. PT'S APPETITE HAS DECREASED TODAY, BUT FLUID INTAKE AND UO REMAINS SUFICIENT. PT WORKED W/ PHYSICAL THERAPY AND IT WAS NOTED THAT THIS WILL BE A DIFICULT DISCHARGE PT WILL NOT HAVE ANY HELP AT HOME DUE TO SPUOSE BEING HOSPITALIZED WELL.
--- NOTE | 2021-04-27 19:10 | NUR ---
SHIFT REPORT RECEIVED FROM SANDEEP BERMAN. PT UP IN CHAIR. SPO2 92% ON 7L NC. CALL LIGHT IN REACH.
--- NOTE | 2021-04-27 21:45 | NUR ---
ASSESSMENT,VS AND I&O COMPLETED. SCHEDULED MEDS PROVIDED. PRN SLEEP MED PROVIDED. GCS 15, A&O X4. COPX 92% ON 7L NC. LUNGS CLEAR IN UPPER LOBES AND FINE CRACKLES IN LOWER LOBES. HEART TONES REGULAR. ABD SOFT, NONTENDER, BOWEL TONES ACTIVE. PT UP TO BSC AND BACK TO BED, SPO2 DROPS INTO UPPER 80s WITH ACTIVITY BUT RECOVERS QUICKLY. CMS INTACT. IV WNL, CDI, FLUSHED WELL. SNACK AND MILK PROVIDED. NO OTHER NEEDS AT THIS TIME. CALL LIGHT IN REACH.
--- NOTE | 2021-04-27 23:39 | NUR ---
PT RESTING IN BED, WATCHING TV. CPOX 93% ON 7L NC. CALL LIGHT IN REACH.
--- NOTE | 2021-04-28 01:24 | NUR ---
PT RESTING IN BED, EYES CLOSED. RR EVEN, UNLABORED. SPO2 92@ ON 7L NC. CALL LIGHT IN REACH.
--- NOTE | 2021-04-28 03:29 | NUR ---
PT RESTING IN BED, EYES CLOSED. RR EVEN, UNLABORED. CPOX 93% ON 7L. CALL LIGHT IN REACH.
--- NOTE | 2021-04-28 06:00 | NUR ---
ASSESSMENT COMPLETED. LUNGS HAVE FINE CRACKLES IN UPPPER LOBES AND CRACKLES IN LOWER LOBES. SPO2 92% @ 7L NC. IV WNL. CMS INTACT. PT DENIES SOB OR PAIN. NO OTHER NEEDS. CALL LIGHT IN REACH.
--- NOTE | 2021-04-28 07:30 | NUR ---
Shift report received from ANTONELLA Jacobson, pt resting in bed safely w/ call light in reach. O2 sats 91% on 7L high flow NC.
--- NOTE | 2021-04-28 08:00 | NUR ---
patient sitting up in bed. says she doesnt want to get up to chair and that she doesnt want to eat breakfast. warm washcloth offered. shower offered and refused.
--- NOTE | 2021-04-28 08:00 | NUR ---
PT SITTING UP IN BED W/ CALL LIGHT IN REACH. PT OFFERED TO GET UP IN CHAIR FOR BREAKFAST BUT DECLINED STATING SHE IS NOT HUNGRY AND DOESNT WANT TO GET UP RIGHT NOW. O2 STATS 84% ON 7L HIGH FLOW VIA NC.
--- NOTE | 2021-04-28 10:00 | NUR ---
PT SITTING UP IN BED O2 SATS 85% ON 7L HIGH FLOW VIA NC. MORNING ASSESMENT COMPLETED AND SCHEDULED MEDS GIVEN PER PROVIDER ORDERS. PT ENCOURAGED TO PRONE OR LAY ON SIDE BUT PT REFUSES STATING SHE CAN'T DUE TO PTSD. PROVIDER IN ROOM, PT EDUCATED ON CONDITION AND UPDATED ON PLAN OF CARE. PT RECEPTIVE TO DISCUSION.
--- NOTE | 2021-04-28 12:11 | NUR ---
PT RESTING IN BED W/ CALL LIGHT IN REACH AND 7L HIGH FLOW VIA NC. PT REFUSED LUNCH STATING SHE WOULD ONLY LIKE A GLASS OF MILK.
--- NOTE | 2021-04-28 12:51 | NUR ---
PT'S O2 SATS CHECKED, 88% ON 7L HIGH FLOW VIA NC. PT DENIES SOB.
--- NOTE | 2021-04-28 14:02 | NUR ---
PT SITTING UP IN BED WITH CALL LIGHT IN REACH. PT ON 7L HIGH FLOW VIA NC, O2 SATS 88%. PT STILL DECLINES TO PRONE, DESPITE EDUCATION.
--- NOTE | 2021-04-28 16:00 | NUR ---
PT HAS REDDEND AREA TO LEFT SIDE OF PANIS. NIO FOR NYSTATIN PLACED AND POWDER APPLIED TO AREA.
--- NOTE | 2021-04-28 18:00 | NUR ---
PT ATE APPROX 10% OF HER DINNER AND THEN STATED SHE WAS FULL. O2 SATS REMAIN 88% ON 7L HIGH FLOW VIA NC
--- NOTE | 2021-04-28 18:48 | NUR ---
Patient resting awake in bed, no notable distress. Patient remains on 7L per nc, respirations non labored. Patient reports she is lonely and misses her . Visited with patient for a little while. No further needs. Personal supplies and call light within reach.
--- NOTE | 2021-04-28 19:30 | NUR ---
RECEIVED REPORT FROM ANTONELLA HOPKINS. pt RESTING IN BED. NO REQUESTS AT THIS TIME. CALL LIGHT WITHIN REACH.
--- NOTE | 2021-04-28 19:55 | NUR ---
IN TO DO MEDICATIONS AND ASSESSMENT. pt SITTING UP IN BED. DENIES PAIN, REPORTS A LITTLE SOB, NO CHANGE FROM THIS AM. CRACKLES IN BASES. SKIN CARE PROVIDED TO LEFT SIDE ABD. pt VERBALIZED UNDERSTANDING OF RESPIRATORY CARE AND DEMONSTRATED IS. NO FURTHER REQUESTS AT THIS TIME. CALL LIGHT WITHIN REACH.
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
--- NOTE | 2021-04-29 00:38 | NUR ---
ROUNDED ON pt. RESTING IN BED ON RIGHT SIDE. RESPIRATIONS REGULAR. CALL LIGHT WITHIN REACH.
--- NOTE | 2021-04-29 02:40 | NUR ---
ROUNDED ON pt. RESTING ON RIGHT SIDE. CALL LIGHT WITHIN REACH.
--- NOTE | 2021-04-29 04:30 | NUR ---
ROUNDED ON pt. pt IS PRONING WITH EYES CLOSED. CALL LIGHT WITHIN REACH.
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
--- NOTE | 2021-04-29 07:15 | NUR ---
SHIFT REPORT FROM NURSE COBB. PT IS UP ON BSC. DENIES NEEDS AT THIS TIME. CALL LIGHT WITHIN REACH.
--- NOTE | 2021-04-29 08:50 | NUR ---
IN ROOM FOR MORNING MEDS. PT REPORTS SLIGHT NAUSEA AND PAIN IN CHEST/LUNGS. SPO2 ON 7LNC 91%. PT APPEARS NERVOUS/ANXIOUS BUT IS COMPLIANT AND ORIENTED. REDNESS CONTINUES UNDER PANUS ON LEFT SIDE; DESENEX POWDER APPLIED. PT HAD 2 EPISODES OF SOFT STOOL THEREFORE LAXATIVES/STOOL SOFTENERS HELD. PT HAS BEEN INDEPENDENT TO [facility]. LUNG SOUNDS CLEAR EXCEPT LLL WHICH HAS CRACKLES. CMS INTACT, BOWEL TONES ACTIVE. PT COMPLIANT WITH FLUID RESTRICTION. TRACE EDEMA IN BLE. PHYSICAL THERAPY IN ROOM TO DO PT WITH pt. NO FURTHER NEEDS AT THIS TIME. CALL LIGHT WITHIN REACH.
--- NOTE | 2021-04-29 10:19 | NUR ---
BACK IN ROOM TO ADMINISTER PRN TYLENOL FOR REPORTED LUNG/CHEST PAIN. PT RATES THIS 4/10. SPOKE WITH DR BULLOCK RE: THIS SYMPTOM AND WE WILL START WITH TYLENOL AND CONTINUE TO MONITOR. PT REMAINS ANXIOUS BUT COOPERATIVE AND INTERACTIVE WITH THIS NURSE. CALL LIGHT WITHIN REACH. WILL CONTINUE TO MONITOR.
--- NOTE | 2021-04-29 10:52 | NUR ---
CHECKED ON PT; PT SITTING UP IN BED, TALKING ON CELL PHONE. NO APPARENT SIGNS OF DISTRESS. CALL LIGHT WITHIN REACH.
--- NOTE | 2021-04-29 11:55 | NUR ---
TOOK PT HER LUNCH. PT REPORTS THAT HER PAIN IS IMPROVED FOLLOWING PRN TYLENOL. PT DENIES FURTHER NEEDS AT THIS TIME. CALL LIGHT WITHIN REACH
--- NOTE | 2021-04-29 13:30 | NUR ---
CHARGE NURSE NILS REPORTS THAT SHE WAS IN PT ROOM AND ASSISTED PT BACK FROM TOILET. PT HAD REMOVED HER O2 AND GONE TO BATHROOM UNASSISTED. BED LINENS CHANGED, NEW PJ PANTS PROVIDED FOR PT. PT UP IN CHAIR. CALL LIGHT WITHIN REACH.
--- NOTE | 2021-04-29 17:20 | NUR ---
IN ROOM FOR EVENING MEDS AND ASSESSMENT. PT REPORTS FEELING MUCH BETTER TODAY OVERALL. SPO2 HAS REMAINED STEADY IN THE 90S ON 7L NC. LUNG SOUNDS CLEAR WITH THE EXCEPTION OF RLL WHERE FINE CRACKLES ARE HEARD. PT HAD A BM EARLIER TODAY. PT REPORTS NO PAIN AT THIS TIME. DINNER BROUGHT TO PT; PT UP IN CHAIR EATING. CALL LIGHT WITHIN REACH. NO FURTHER NEEDS AT THIS TIME.
--- NOTE | 2021-04-29 19:30 | NUR ---
RECEIVED REPORT FROM NATONELLA SEXTON. pt SITTING UPRIGHT IN BED. NO REQUESTS AT THIS TIME. CALL LIGHT WITHIN REACH.
--- NOTE | 2021-04-29 21:30 | NUR ---
IN TO DO ASSESSMENT. pt RESTING IN BED. WORK OF BREATHING CONSISTENT WITH PRIOR NIGHT. O2 SAT READ 79% WITH A GOOD WAVE FORM. ENCOURAGED pt TO SIT UP AND FOCUS ON BREATHING. pt REQUESTED A NEB, SCHEDULED NEB GIVEN (SEE MAR). ASSESSMENT DONE. CRACKLES IN BASES. INCREASED O2 TO 10L WHICH IS HIGH THE pt IS ABLE TO TOLERATE WITHOUT "HAVING TOO MUCH PRESSURE AND I'LL GET A BLOODY NOSE" pt AGITATED WHEN ATTEMPTING TO TITRATE O2. SAT WITH pt AND DISCUSSED PAST HISTORY AND IMPORTANCE OF OXYGEN. UNABLE TO FIND ANY POTENTIAL TREATEMENTS. PRN ANXIETY MED GIVEN WITH SCHEDULED MEDICATIONS, pt REQUESTED SOMETHING TO HELP HER SLEEP, REMINDED pt SHE WAS ABLE TO SLEEP LAST NIGHT WITHOUT MEDICATIONS. pt INSISTED HAVING MEDICATION (SEE MAR). pt INDEPENDENT IN TO BSC. WILL BE BACK TO CHECK O2 SAT IF pt AWAKE, pt AGREEABLE TO PLAN. CALL LIGHT WITHIN REACH.
--- NOTE | 2021-04-29 21:37 | NUR ---
DR BULLOCK NOTIFIED ABOUT pt O2 SAT BEING 85% ON 10L. NO NEW ORDERS AT THIS TIME.
--- NOTE | 2021-04-29 22:22 | NUR ---
ROUNDED ON pt. O2 SAT 84% ON 10L O2. NO CHANGES IN pt CONDITION. pt HAS DONE PM CARES. NO FURTHER REQUESTS AT THIS TIME. pt DID ASK ABOUT A SLEEP AID, REMINDED pt SHE ALREADY TOOK HER MEDICATION. CALL LIGHT WITHIN REACH.
--- NOTE | 2021-04-30 | NUR ---
ROUNDED ON pt. RESTING ON RIGHT SIDE, EYES CLOSED, RESPIRATIONS REGULAR. CALL LIGHT WITHIN REACH.
--- NOTE | 2021-04-30 02:08 | NUR ---
ROUNDED ON pt. RESTING ON LEFT SIDE. CALL LIGHT WITHIN REACH.
--- NOTE | 2021-04-30 04:00 | NUR ---
ROUNDED ON pt. RESTING IN BED ON LEFT SIDE. CALL LIGHT WITHIN REACH.
--- NOTE | 2021-04-30 06:20 | NUR ---
IN TO DO ASSESSMENT. pt WOKE TO VOICE. REPORTED SHE SLEPT "PRETTY GOOD" SCHEDULED MEDICATION GIVEN (SEE MAR). VITALS AND I&O RECORDED. ASSESSMENT DONE. NO CHANGES. pt REMAINS ON 10L O2 VIA NC. WARM BLANKET PROVIDED. BSC HAD SOFT STOOL AND URINE. NO FURTHER REQUESTS AT THIS TIME. CALL LIGHT WITHIN REACH.
--- NOTE | 2021-04-30 07:32 | NUR ---
REPORT RECIEVED FROM ANTONELLA COBB. PT REPORTEDLY SLEPT WELL AFTER TRAZADONE. REFUSED TO HAVE O2 TURNED UP OR US MASK, SATS MID 80'S
--- NOTE | 2021-04-30 10:31 | NUR ---
PATIENT IN BED RESTING. VITALS AND I&O'S CHARTED. CALL LIGHT IN REACH, NO FURTHER NEEDS AT THIS TIME.
--- NOTE | 2021-04-30 11:33 | NUR ---
PT CALLED OT ASK FOR COFFEE. BREWED FRESH POT AND GIVEN TO PT. DENIES CONCERNS. STATES SHE FEELS THE SAME THIS MORNING.
--- NOTE | 2021-04-30 13:25 | NUR ---
Talked with ANTONELLA Fleming. She stated pt was in a better place mentally but physically still weak and heavily reliant oxygen support. She did indicate that pt could probably talk for a short while on telephone. Attempted to call pt, but no answer on room phone. Offered prayer for healing and perseverance.
--- NOTE | 2021-04-30 14:45 | NUR ---
PATIENT SITTING UP IN BED TALKING ON PHONE. O2 LOW, RN NOTIFIED. VITALS AND I&O'S CHARTED. CALL LIGHT IN REACH. NO FURTHER NEEDS AT THIST FELIX.
--- NOTE | 2021-04-30 16:09 | NUR ---
PT IN BED TALKING WITH DR BULLOCK. THEN TALKING ON PHONE. SATS IN 80'S BUT DENIES SOB.
--- NOTE | 2021-04-30 16:29 | NUR ---
CHECKED ON PT. SHE DENIES NEEDS OR CONCERNS.
--- NOTE | 2021-04-30 19:21 | NUR ---
REPORT RECEIVED FROM DAY SHIFT RN. PT LYING IN BED ALERT AND ORIENTED TALKING ON PHONE. DENIES NEEDS AT THIS TIME. CALL LIGHT IN REACH.
--- NOTE | 2021-04-30 21:09 | NUR ---
EVENING ASSESSMENT COMPLETE. SCHEDULED MEDS ADMINISTERED PER EMAR. PT HAD JUST BEEN UP TO PLUG IN PHONE. INCREASED RESPIRATIONS NOTED. SpO2 93% ON 10L/NC. HR 100'S. PT DENIES CHEST PAIN. REPORTS SOB WITH ACTIVITY BUT NOT AT REST. CRACKLES HEARD IN LUNG BASES. DENIES PAIN OR NAUSEA. FRESH WATER PROVIDED. PT DENIES QUESTIONS OR CONCERNS AT THIS TIME. CALL LIGHT IN REACH.
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
--- NOTE | 2021-05-01 00:45 | NUR ---
PT LYING IN BED ON RIGHT SIDE. RESPIRATIONS EVEN. NASAL CANNULA IN PLACE.
--- NOTE | 2021-05-01 02:52 | NUR ---
PT RESTING ON RIGHT SIDE. EYES CLOSED. RESPIRATIONS EVEN. 9L/NC IN PLACE. CALL LIGHT IN REACH.
--- NOTE | 2021-05-01 05:45 | NUR ---
VS AND I&O COMPLETE. PT REPORTS SHE SLEPT WELL. SCHEDULED MEDS ADMINISTERED PER EMAR. ASSESSMENT COMPLETE. SpO2 84% ON 9L/NC. PT DENIES PAIN OR SOB. OCCASIONAL DRY COUGH NOTED. PT DENIES FURTHER NEEDS AT THIS TIME. CALL LIGHT IN REACH.
--- NOTE | 2021-05-01 10:00 | NUR ---
Called and spoke with Caitlyn by phone. She is wanting to dc today as she states he spouse is getting discharged from [facility]. We discussed who can assist her and her spouse as they need to remain on isolation, she will need high output concentrator as she is on 10L of 02, and someone who can assist with groceries, pharmacy, etc. She states Radha, he step daughter in law will assist her, she has changed her mind and would like to use [facility] for . She states her driver trainer and friends from the denominational can come in and assist. Reminded she is on isolation and should not have anyone in her home until they are both asymptomatic. Called Radha and she states she is very willing to assist them. She will be off isolation tomorrow, so does not mind going into the home if needed, shopping, picking meds up. She is picking up pt's spouse Smooth from [facility] at 4 pm today. Discussed I will arrange for , she states anytime is fine for tomorrow and she will transport Caitlyn home. Called [employer] and they will deliver a high flow concentrator tomorrow, will need a new [address] Gonzalez called and ordered. RT notified will need this today for dc tomorrow.
--- NOTE | 2021-05-01 10:36 | NUR ---
Patient called this RN to come to her room to assist. Once in patient's room pt requested I removed her intact tape from Her IV site and replace it with a new piece of tape. Fresh water at bedside. Patient denies further needs at this time. Call light within reach of patient.
--- NOTE | 2021-05-01 12:11 | NUR ---
Patient requesting to discharge home as she feels she is able to care for herself and her is now home. Dr. Gonzalez notified.
--- NOTE | 2021-05-01 12:34 | NUR ---
DISCUSSED WITH CASE MANAGEMENT THAT PATIENT WANTED TO GO HOME, HER WAS AT HOME NOW.
--- NOTE | 2021-05-01 14:38 | NUR ---
PATIENT IN BED WATCHING TV. RN CALLED TO ROOM DUE TO ELEVATED TEMP AND PULSE AND LOW O2 STAT. RN IN ROOM NOW. FRESH WATER GIVEN. CALL LIGHT IN REACH. NO FURTHER NEEDS AT THIS TIME.
--- NOTE | 2021-05-01 14:49 | NUR ---
Tylenol 500mg po admin for fever 101.0f.
--- NOTE | 2021-05-01 15:00 | NUR ---
Apical heart rate noted to be 109bpm. Patient appears anxious, denies sob at this time. Oxygen saturations of 84-89%. per nc. Encouraged patient to call staff if she has needs. Patient receptive to plan of care.
--- NOTE | 2021-05-01 16:00 | NUR ---
Notified by Oral in RT, pt will not be able to dc marci. She required 14l of today when he assessed her. He was calling Dr. Gonzalez to update.
--- NOTE | 2021-05-01 16:42 | NUR ---
PATIENT AGITATED, THREATENING TO REMOVE OXYGEN (13L VIA NC). CALL TO DR. BULLOCK AND PATIENT ABLE TO TALK TO DR. BULLOCK VIA PHONE. PATIENT AGREED TO WEAR 10L OF OXYGEN MAX AND NO MORE. PRIMARY NURSE JAY NOTIFIED. MONET IN RT NOTIFIED. PATIENT AGREED TO TAKE VISTARIL. CURRENTLY 10L VIA NASAL CANNULA.
--- NOTE | 2021-05-01 19:28 | NUR ---
REPORT RECEIVED FROM DAY SHIFT RN. PT LYING IN BED RESTING WITH EYES CLOSED. RESPIRATIONS EVEN. NC IN PLACE. CALL LIGHT IN REACH.
--- NOTE | 2021-05-01 20:22 | NUR ---
CALL LIGHT ANSWERED. PT NEEDING ASSISTANCE TO TIDY ROOM. PT REPORTS CHEST FEELS "TIGHT". BREATHING TX ADMINISTERED. PT REPORTS SOME RELIEF. 10L/NC IN PLACE. HR 100'S. RESPIRATIONS 24. LUNGS WITH CRACKLES IN BASES. VS AND I&O COMPLETE. TEMP NOTED 99.2. PRN TYLENOL ADMINISTERED FOR HEADACHE. SCHEDULED MEDS ADMINISTERED PER EMAR. PT ANXIOUS AND DISCOURAGED ABOUT "NOT FEELING BETTER". THERAPEUTIC COMMUNICATION UTILIZED. PT DENIES FURTHER NEEDS AT THIS TIME. CALL LIGHT IN REACH.
--- NOTE | 2021-05-01 21:35 | NUR ---
PATIENT CALLED FOR WATER. PROVIDED 300 ML PER ALLOWABLE FOR FLUID RESTRICTION. PRIMARY RN NOTIFIED. EMPTIED BEDSIDE COMMODE. NO FURTHER NEEDS AT THIS TIME.
--- NOTE | 2021-05-01 22:31 | NUR ---
PT AWAKE IN BED. 10L/NC IN PLACE. RESPIRATIONS EVEN. PRN FOR SLEEP AND ANXIETY ADMINISTERED PER EMAR. PT DENIES FURTHER NEEDS AT THIS TIME. CALL LIGHT IN REACH.
--- NOTE | 2021-05-01 23:46 | NUR ---
PT RESTING IN BED ON RIGHT SIDE. EYES CLOSED. NO APPARENT DISTRESS.
--- NOTE | 2021-05-02 02:02 | NUR ---
PT LYING IN BED RESTING WITH EYES CLOSED. RESPIRATIONS EVEN. NC IN PLACE. CALL LIGHT IN REACH.
--- NOTE | 2021-05-02 03:46 | NUR ---
PT RESTING IN BED WITH EYES CLOSED. RESPIRATIONS EVEN. NASAL CANNULA IN PLACE. CALL LIGHT IN REACH.
--- NOTE | 2021-05-02 06:08 | NUR ---
VS AND I&O COMPLETE. PT REPORTS SHE SLEPT WELL. PRN FOR PAIN ADMINISTERED FOR GENERALIZED PAIN. 10L/NC IN PLACE. SpO2 82%. HR 70'S. RESPIRATIONS EVEN. PT DENIES FURTHER NEEDS. CALL LIGHT IN REACH.
--- NOTE | 2021-05-02 08:30 | NUR ---
Pt discussed in [address]. Pt insisting on dc today and and considered going AMA last night as she wants to be home with her . will see this am and discharge if she is tolerating the 10L of 02.
--- NOTE | 2021-05-02 09:01 | NUR ---
Admin vistaril 25mg po for reports of anxiety. Patient is awake, in pleasant mood and reports she is feeling better today. Oxygen at 10L per nc, respirations non labored. Patient denies pain at this time. Personal supplies and call light within reach.
--- NOTE | 2021-05-02 10:00 | NUR ---
Received 02 RX, 02 qualifier. Chart copied and all faxed to [facility]. Called and spoke with Gerald and he states their public transit trolley driver is on the way and has the DME with him to deliver to her home. I asked if they could let me know when 02 is delivered and we will dc pt. I also asked if I should send with 2 small tanks or if their public transit trolley driver is bringing a larger tank for pt to dc to home with as she is using 10L at this time.
--- NOTE | 2021-05-02 10:45 | NUR ---
Spoke with Florentino from [facility]. He is in the area and has DME for Caitlyn. He planned on delivering 02 in 1-1 1/2 hours to her house. He will bring a larger 02 tank for her to discharge home the 25 minutes from the hospital. vocational nurse notified, I will call pt's Roxane davis, and schedule for her to pick pt up at the ER entrance at 1 PM.
--- NOTE | 2021-05-02 10:53 | NUR ---
PATIENT AWAKE IN BED, VITALS AND I&OS CHARTED. BED BATH COMPLETE, PATIENTS FAMILY MEMBER WILL BRING CLEAN CLOTHES AT D/C LATER TODAY. CALL LIGHT IN REACH. NO OTHER NEED AT THIS TIME
--- NOTE | 2021-05-02 11:07 | NUR ---
Called Radha and she will pick pt up at 1 pm.
--- NOTE | 2021-05-02 12:09 | NUR ---
Tylenol 500mg po admin for reports of a headache, pain level 7/10 reported.
== END 2021-05-02 13:08 | disposition home or self-care (01) | DRG 177 ==
LOC: ED 09:38 → CCU 15:23 → MS 15:23
PROVIDERS: ADMIT Internal Medicine; ATTEND Internal Medicine
PROC: 8E0ZXY6 Isolation (ICD-10-PCS; principal; 2021-04-21)
PROC: XW033E5 Introduction of Remdesivir Anti-infective into Peripheral Vein, Percutaneous Approach, New Technology Group 5 (ICD-10-PCS; 2021-04-21)
PROC: 3E0333Z Introduction of Anti-inflammatory into Peripheral Vein, Percutaneous Approach (ICD-10-PCS; 2021-04-21)
DX: U07.1 COVID-19 (principal); J12.82 Pneumonia due to coronavirus disease 2019; J96.21 Acute and chronic respiratory failure with hypoxia; J44.0 Chronic obstructive pulmonary disease with (acute) lower respiratory infection; E87.1 Hypo-osmolality and hyponatremia; I47.1 Supraventricular tachycardia; I10 Essential (primary) hypertension; M19.90 Unspecified osteoarthritis, unspecified site; E03.9 Hypothyroidism, unspecified; E87.6 Hypokalemia; Z53.20 Procedure and treatment not carried out because of patient's decision for unspecified reasons; E78.5 Hyperlipidemia, unspecified; G43.909 Migraine, unspecified, not intractable, without status migrainosus; Z99.81 Dependence on supplemental oxygen; Z98.890 Other specified postprocedural states; Z90.710 Acquired absence of both cervix and uterus; Z87.891 Personal history of nicotine dependence; Z90.89 Acquired absence of other organs; Z90.49 Acquired absence of other specified parts of digestive tract; Z88.5 Allergy status to narcotic agent; Z88.8 Allergy status to other drugs, medicaments and biological substances; Z79.899 Other long term (current) drug therapy; Z79.82 Long term (current) use of aspirin; Z79.84 Long term (current) use of oral hypoglycemic drugs
CPT/HCPCS: 36600; 71045; 80048; 80053; 82803; 83735; 84550; 85025; 94640; 94667; 94668; 94760; 94761; 94799; 96374; 96375; 97110; 97116; 97162; 99285-25; A9270; C9803; J1100; J1650; J2405; J3475; J7030; J7050; J7070; J8540; Q0177; U0003

== ENCOUNTER 2021-05-23 12:20 | Emergency (ER) | payer MEDICARE ==
[~2021-05-23] VITALS: Ht 165.1 cm; Wt 92.1 kg
[~2021-05-23 12:20] MED LIST changes: +COMBIVENT RESPIM4 GM INH; +FREESTYLE LITE1 EAC1; +LISINOPRIL-HCT1 EACH PO; +METOPROLOL SUC200 MG PO; +ROSUVASTATIN CA10 MG PO
--- OUTSIDE RECORDS SUMMARY | 2021-05-23 12:30 | XMS ---
PreManage Notification: KARLY BARBOUR [facility] Chief Executive Officer Events No recent Security Events currently on file CRITERIA MET - Group Notification [facility] NARESH Singh PHONE: [phone] Gallito has no Care Guidelines for this patient. Kareen VISIT COUNT (12 MO.) 2 [facility] TOTAL 2 NOTE: Visits indicate total known visits. ED/UCC VISIT TRACKING (12 MO.) 05/23/2021 12:21 [facility] TYPE: Emergency COMPLAINT: - COVID+, PNEUMONIA, LOW O2 SATS 04/21/2021 09:39 [facility] TYPE: Emergency COMPLAINT: - NAUSEA, VOMITING INPATIENT VISIT TRACKING (12 MO.) 04/21/2021 15:23 [facility] TYPE: Medical Surgical COMPLAINT: - ACUTE ON CHRONIC RESPIRATORY FAILURE DIAGNOSES: - Chronic obstructive pulmonary disease with (acute) lower respiratory infection - Dependence on supplemental oxygen - Allergy status to other drugs, medicaments and biological substances - Hypokalemia - Personal history of nicotine dependence - Supraventricular tachycardia - intermediate (current) use of aspirin - Procedure and treatment not carried out because of patient's decision for unspecified reasons - Unspecified osteoarthritis, unspecified site - Supraventricular tachycardia - Hyperlipidemia, unspecified - Other specified postprocedural states - Acute and chronic respiratory failure with hypoxia - Procedure and treatment not carried out because of patient's decision for unspecified reasons - Hypo-osmolality and hyponatremia - Migraine, unspecified, not intractable, without status migrainosus - Acquired absence of both cervix and uterus - COVID-19 - Other exterminator helper termite (current) drug therapy - Acute and chronic respiratory failure with hypoxia - Acquired absence of other specified parts of digestive tract - Essential (primary) hypertension - Unspecified osteoarthritis, unspecified site - Other exterminator helper termite (current) drug therapy - intermediate (current) use of aspirin - Hypokalemia - Allergy status to narcotic agent - Hypothyroidism, unspecified - intermediate (current) use of oral hypoglycemic drugs - Hypothyroidism, unspecified - Acquired absence of both cervix and uterus - Acquired absence of other specified parts of digestive tract - Acquired absence of other organs - Personal history of nicotine dependence - Chronic obstructive pulmonary disease with (acute) lower respiratory infection - Migraine, unspecified, not intractable, without status migrainosus - Allergy status to narcotic agent - Hyperlipidemia, unspecified - Allergy status to other drugs, medicaments and biological substances - Acquired absence of other organs - termite treater helper (current) use of oral hypoglycemic drugs - Other specified postprocedural states - Hypo-osmolality and hyponatremia - Dependence on supplemental oxygen - Essential (primary) hypertension [email or web address]
[2021-05-23] MEDS ORDERED: LISINOPRIL20 MG PO (12:45)
[2021-05-23] MEDS ORDERED: LEVOFLOXACIN750 MG PO (12:45)
[2021-05-23] MEDS ORDERED: DOXYCYCLINE MO100 M1 PO (12:45)
--- NOTE | 2021-05-23 22:33 | EKG ---
[facility] [address] [place], [place] [address] Signed Normal sinus rhythm Normal ECG When compared with ECG of 26-JAN-2019 06:15, No significant change was found Confirmed by ADRIENNE MONIQUE DO ([id number]) on 05/23/2021 10:33:37 PM Electronically Signed By: ADRIENNE MONIQUE DO 05/23/21 223 PATIENT NAME: KMKARLY V Electrocardiogram DATE OF : 49 PHYSICIAN: ADRIENNE MONIQUE DO REPORT #: [id number] REPORT IS CONFIDENTIAL AND NOT TO BE RELEASED WITHOUT AUTHORIZATION
== END 2021-05-23 16:40 | disposition home or self-care (01) ==
LOC: ED 12:20
DX: J44.9 Chronic obstructive pulmonary disease, unspecified (principal); J96.11 Chronic respiratory failure with hypoxia; Z86.16 Personal history of COVID-19; I10 Essential (primary) hypertension; G43.909 Migraine, unspecified, not intractable, without status migrainosus; M19.90 Unspecified osteoarthritis, unspecified site; Z87.891 Personal history of nicotine dependence; Z88.5 Allergy status to narcotic agent; Z79.82 Long term (current) use of aspirin; Z79.899 Other long term (current) drug therapy
CPT/HCPCS: 71045; 80053; 83735; 84484; 85025; 93005; 93010; 99285-25

== ENCOUNTER 2021-05-23 23:57 | Emergency (ER) | payer MEDICARE ==
[~2021-05-23] VITALS: Ht 165.1 cm; Wt 92.1 kg
[~2021-05-23 23:57] MED LIST changes: +DOXYCYCLINE MO100 M1 PO; +LEVOFLOXACIN750 MG PO; +LISINOPRIL20 MG PO
--- OUTSIDE RECORDS SUMMARY | 2021-05-24 00:04 | XMS ---
PreManage Notification: KARLY BARBOUR Security User Acceptance Tester Events No recent Security Events currently on file CRITERIA MET - [facility] - 2 Visits in 30 Days - Group Notification [facility]-Danae Singh PHONE: [phone] Gallito has no Care Guidelines for this patient. Kareen VISIT COUNT (12 MO.) 3 [facility] TOTAL 3 NOTE: Visits indicate total known visits. ED/UCC VISIT TRACKING (12 MO.) 05/23/2021 23:57 [facility] TYPE: Emergency COMPLAINT: - RAPID HEART RATE 05/23/2021 12:21 [facility] TYPE: Emergency COMPLAINT: - COVID+, PNEUMONIA, LOW O2 SATS 04/21/2021 09:39 [facility] TYPE: Emergency COMPLAINT: - NAUSEA, VOMITING INPATIENT VISIT TRACKING (12 MO.) 04/21/2021 15:[address] [facility] OR TYPE: Medical Surgical COMPLAINT: - ACUTE ON CHRONIC RESPIRATORY FAILURE DIAGNOSES: - Chronic obstructive pulmonary disease with (acute) lower respiratory infection - Dependence on supplemental oxygen - Allergy status to other drugs, medicaments and biological substances - Hypokalemia - Personal history of nicotine dependence - Supraventricular tachycardia - halfway (current) use of aspirin - Procedure and [...] cervix and uterus - COVID-19 - Other nursing home (current) drug therapy - Acute and chronic respiratory failure with hypoxia - Acquired absence of other specified parts of digestive tract - Essential (primary) hypertension - Unspecified osteoarthritis, unspecified site - Other nursing home (current) drug therapy - halfway (current) use of aspirin - Hypokalemia - Allergy status to narcotic agent - Hypothyroidism, unspecified - halfway (current) use of oral hypoglycemic drugs - [...] - Acquired absence of other organs - halfway (current) use of oral hypoglycemic drugs - Other specified postprocedural states - Hypo-osmolality and hyponatremia - Dependence on supplemental oxygen - Essential (primary) hypertension [email or web address]
--- NOTE | 2021-05-24 19:17 | EKG ---
[facility] [address] [place], [place] [address] Signed Normal sinus rhythm Normal ECG When compared with ECG of 23-MAY-2021 13:29, No significant change was found Confirmed by ADRIENNE MONIQUE DO ([id number]) on 05/24/2021 7:17:49 PM Electronically Signed By: ADRIENNE MONIQUE DO 05/24/211916 PATIENT NAME: KMKARLY V Electrocardiogram DATE OF : 49 PHYSICIAN: ADRIENNE MONIQUE DO REPORT #: [id number] REPORT IS CONFIDENTIAL AND NOT TO BE RELEASED WITHOUT AUTHORIZATION
== END 2021-05-24 02:02 | disposition home or self-care (01) ==
LOC: ED 23:57
DX: J44.1 Chronic obstructive pulmonary disease with (acute) exacerbation (principal); I10 Essential (primary) hypertension; G43.909 Migraine, unspecified, not intractable, without status migrainosus; Z87.891 Personal history of nicotine dependence; Z88.5 Allergy status to narcotic agent; Z88.8 Allergy status to other drugs, medicaments and biological substances; Z79.899 Other long term (current) drug therapy; Z79.82 Long term (current) use of aspirin
CPT/HCPCS: 71045; 80053; 83735; 84484; 85025; 93005; 93010; 96374; 99285-25; J2930

== ENCOUNTER 2021-07-10 08:57 | Inpatient (IN) | payer MEDICARE, OTHER ==
[~2021-07-10] VITALS: Ht 165.1 cm; Wt 85.3 kg
--- OUTSIDE RECORDS SUMMARY | 2021-07-10 09:04 | XMS ---
PreManage Notification: KARLY BARBOUR Security Type[employer] Functional Tester Events No recent Security Events currently on file CRITERIA MET - Group Notification CARE PROVIDERS ALBERT [facility] 05/24/2021-Current PHONE: [phone] [facility]Danae Singh PHONE: [phone] Gallito has no Care Guidelines for this patient. Kareen VISIT COUNT (12 MO.) Theresa Jacinto TOTAL 4 NOTE: Visits indicate total known visits. ED/UCC VISIT TRACKING (12 MO.) 07/10/2021 08:57 [facility] TYPE: Emergency COMPLAINT: - DIFFICULTY BREATHING 05/23/2021 23:57 [facility] TYPE: Emergency COMPLAINT: - RAPID HEART RATE DIAGNOSES: - long term acute care registered nurse (current) use of aspirin - Essential (primary) hypertension - Allergy status to other drugs, medicaments and biological substances - Chronic obstructive pulmonary disease with (acute) exacerbation - Personal history of nicotine dependence - Allergy status to narcotic agent - Migraine, unspecified, not intractable, without status migrainosus - Other termite inspector (current) drug therapy - Shortness of breath 05/23/2021 12:21 [facility] TYPE: Emergency COMPLAINT: - PNEUMONIA, LOW O2 SATS DIAGNOSES: - Allergy status to narcotic agent - Pneumonia, unspecified organism - Unspecified osteoarthritis, unspecified site - Chronic respiratory failure with hypoxia - Migraine, unspecified, not intractable, without status migrainosus - Essential (primary) hypertension - Other termite inspector (current) drug therapy - Acute and chronic respiratory failure with hypoxia - Dyspnea, unspecified - Acute and chronic respiratory failure with hypoxia - Personal history of nicotine dependence - Chronic obstructive pulmonary disease, unspecified - long term acute care registered nurse (current) use of aspirin 04/21/2021 09:39 [facility] TYPE: Emergency [...] of nicotine dependence - Supraventricular tachycardia - correction (current) use of aspirin - Procedure and [...] cervix and uterus - COVID-19 - Other residential (current) drug therapy - Acute and chronic respiratory failure with hypoxia - Acquired absence of other specified parts of digestive tract - Essential (primary) hypertension - Unspecified osteoarthritis, unspecified site - Other termite inspector (current) drug therapy - long term acute care registered nurse (current) use of aspirin - Hypokalemia - Allergy status to narcotic agent - Hypothyroidism, unspecified - correction (current) use of oral hypoglycemic drugs - [...] - Acquired absence of other organs - long term acute care registered nurse (current) use of oral hypoglycemic drugs - Other specified postprocedural states - Hypo-osmolality and hyponatremia - Dependence on supplemental oxygen - Essential (primary) hypertension [email or web address]
--- NOTE | 2021-07-10 14:50 | NUR ---
PATIENT ADMITTED TO CCU FROM ER ON 15 L HIGH FLOW OXYGEN. PATIENT ADMITTED FOR PNEUMONIA. PATIENT'S AT BEDSIDE WITH PATIENT UPON ADMISSION. PATIENT REPORTS THAT SHE WEARS 9.5 L CHRONICALLY AT HOME, SINCE DISCHARGE FROM [facility] IN [place]. PATIENT REPORTS SHE JUST STARTED FEELING ILL THIS MORNING AT HOME. PT RECEIVING IV ABX, IV STEROIDS, AND NEB TXs. PT REFUSED SUAREZ IN ER AND WILL USE BEDPAN WHEN NEEDING TO VOID. CT IN ER RULED OUT A PE. WILL CONTINUE TO MONITOR.
--- NOTE | 2021-07-10 17:10 | NUR ---
OOB TO COMMODE WITH MINIMAL ASSIST TO VOID 125 ML OF YELLOW URINE. BACK TO BED W/O INCIDENT. REMAINS ON HIGH-FLOW O2 AT 13 LITERS.
--- NOTE | 2021-07-10 17:57 | NUR ---
TOOK 2 BOTTLES OF MILK FOR DINNER. REFUSING FUTHER FOOD.
--- NOTE | 2021-07-10 19:17 | EKG ---
[facility] [address] [place], [place] [address] Signed Sinus tachycardia Inferior infarct , age undetermined Abnormal ECG When compared with ECG of 24-MAY-2021 00:28, Inferior infarct is now present Confirmed by ADRIENNE MONIQUE DO ([id number]) on 07/10/2021 7:17:30 PM Electronically Signed By: ADRIENNE MONIQUE DO 07/10/211916 PATIENT NAME: KARLY BARBOUR V Electrocardiogram DATE OF : 49 PHYSICIAN: ADRIENNE MONIQUE DO REPORT #: [id number] REPORT IS CONFIDENTIAL AND NOT TO BE RELEASED WITHOUT AUTHORIZATION
--- NOTE | 2021-07-10 20:00 | NUR ---
SHIFT REPORT RECEIVED FROM ANTONELLA MCNAIR. ASSESSMENT COMPLETED. PT IS ALERT/ORIENTED, DENIES PAIN. PT IS ANXIOUS, CONCERNED ABOUT THE DRAFT IN HER ROOM AND THE POSITION OF HER TABLE/BELONGINGS. INCREASED TEMP IN ROOM AND ATTEMPTED TO MOVE HER BED OUT OF THE DRAFT. LUNGS CLEAR IN UPPERS, COARSE WITH CRACKLES IN BASES. OXYGEN CURRENTLY AT 13L HIGH FLOW NASAL CANNULA. HR REGULAR, RATE 100-110'S, SCHEDULED METOPROLOL GIVEN. BOWEL TONES ACTIVE, DENIES NAUSEA. SKIN GROSSLY INTACT WITHOUT EDEMA, CMS INTACT. IV INTACT, PATENT, AND SALINE LOCKED. PT PROVIDED WITH BOTTLE OF MILK PER REQUEST, DENIES FURTHER NEEDS AT THIS TIME, CALL LIGHT WITHIN REACH.
--- NOTE | 2021-07-10 20:30 | NUR ---
PT REQUESTS TO HAVE OXYGEN TURNED DOWN AT THIS TIME. PT STATES SHE BELIEVES THIS IS THE SOURCE OF COLD AIR BLOWING ON HER RATHER THAN A DRAFT. SPO2 STABLE, OXYGEN DECREASED TO 11L.
--- NOTE | 2021-07-10 20:45 | NUR ---
CALL LIGHT ON. pt UP TO BSC AND BACK TO BED. FELT "WINDED" AFTER MOVING. UNABLE TO SPEAK IN COMPLETE SENTENCES AFTER AMBULATION. VOIDED LIGHT YELLOW URINE AND HAD A BM OF TWO SMALL ROUND SILVIA OF STOOL. CALL LIGHT WITHIN REACH. AT BEDSIDE. pt RECOVERED AFTER A FEW MINUTES OF PURSED LIP BREATHING. SATS 92%, RESPIRATIONS 25.
--- NOTE | 2021-07-10 21:30 | NUR ---
PT REQUESTS OXYGEN BE TURNED DOWN, TITRATED TO 9L AT THIS TIME.
--- NOTE | 2021-07-10 21:47 | NUR ---
CALL LIGHT ANSWERED, PT REQUESTS OXYGEN AGAIN TURNED DOWN, TITRATED TO 7L. INFORMED HER THIS IS LESS THAN WHAT SHE USES AT HOME, PT STATES "THAT'S OK, THIS MACHINE IS BETTER THAN MINE AT HOME." SPO2 CURRENTLY 90%, INFORMED PT THAT I WILL MONITOR SPO2.
--- NOTE | 2021-07-10 22:15 | NUR ---
PT REQUESTS SLEEP AID, USUALLY TAKES [facility] SLEEP AID. DR. MONIQUE CALLED AND ORDER RECEIVED FOR 6MG MELATONIN. MD ALSO STATED THAT IF THAT DOESN'T WORK TO ORDER 50MG TRAZODONE. PT UP TO BSC TO VOID, 250ML CLEAR YELLOW URINE, PERFORMED OWN PERICARE AND RETURNED TO BED. IV ANTIBIOTIC INFUSION STARTED PER EMAR, IV REMAINS PATENT AND INTACT.
--- NOTE | 2021-07-10 22:38 | NUR ---
ADMINISTERED MELATONIN, pt TOOK PILLS THEN STATED "I SURE HOPE THIS DOESN'T MAKE ME SICK" PER pt SHE HAD PURCHASED SOME OVER THE COUNTER AND BEEN NAUSEOUS AFTER TAKING. PROVIDED MORE WATER. UPDATED PRIMARY RN. CALL LIGHT WITHIN REACH.
--- NOTE | 2021-07-10 23:10 | NUR ---
CALL LIGHT ANSWERED, PT UP TO BSC WITH SBA, VOIDED 100ML CLEAR YELLOW URINE. PT PERFORMED OWN PERICARE AND RETURNED TO BED. PT DESATURATES WITH ACTIVITY, LOW 78%. INCREASED OXYGEN TO 8L HFNC. SPO2 NOW 88-90%.
--- NOTE | 2021-07-11 00:21 | NUR ---
ASSESSMENT COMPLETED. PT CONTINUES TO DENY PAIN. LUNGS CONTINUE TO HAVE CRACKLES IN BASES, HFNC TITRATED TO 9.5L, PT DENIES SOB AT REST. HR REGULAR RATE 90-105, FREQ. PVC'S NOTED ON MONITOR. IV REMAINS INTACT AND INFUSING WNL. NO OTHER CHANGES FROM PREIVOUS ASSESSMENT. CALL LIGHT WITHIN REACH.
--- NOTE | 2021-07-11 00:48 | NUR ---
CALL LIGHT ON. pt UP TO BSC AND BACK TO BED. VOID NOTED. NO FURTHER REQUESTS AT THIS TIME. CALL LIGHT IN HAND.
--- NOTE | 2021-07-11 03:34 | NUR ---
CALL LIGHT ON. pt STATES "I PULLED OUT MY IV!" SITE ASSESSED. IV PATENT, DRESSING INTACT, pt POINTING TO PLACE WHERE TAPE WAS SECURING EXTENTION SET. WRAPPED SITE PER pt REQUEST. pt STATED "I DID GET SOME SLEEP, I WAS SLEEPING WELL WHEN I PULLED ON IT" NO FURTHER REQUESTS AT THIS TIME. CALL LIGHT WITHIN REACH.
--- NOTE | 2021-07-11 04:09 | NUR ---
PT RESTING WITH EYES CLOSED, LAYING ON RIGHT SIDE. NO APPARENT DISTRESS, RESPIRATIONS EVEN AND UNLABORED. HFNC REMAINS AT 9.5L. WILL DEFER ASSESSMENT AT THIS TIME TO ALLOW FOR REST.
--- NOTE | 2021-07-11 04:43 | NUR ---
CALL LIGHT ANSWERED. PT UP TO BSC TO VOID 300ML YELLOW URINE AND THEN RETURNED TO BED. ASSESSMENT COMPLETED, UNCHANGED. 9.5L HFNC REMAINS IN PLACE. VITAL SIGNS STABLE. PT DENIES FURTHER NEEDS AT THIS TIME, CALL LIGHT WITHIN REACH.
--- NOTE | 2021-07-11 06:03 | NUR ---
IN TO GIVE SCHEDULED MEDS PER EMAR. PT REPORTS 4/10 HEADACHE PAIN, PRN TYLENOL GIVEN. WATER REFILLED, PT DENIES FURTHER REQUESTS.
--- NOTE | 2021-07-11 06:25 | NUR ---
IN TO FIX V LEAD. PT REQUESTS I TURN HER OXYGEN DOWN, DECREASED TO 8L HFNC. UP TO BSC WITH SBA, VOIDED 200ML YELLOW URINE, AND DID OWN PERICARE PRIOR TO RETURNING TO BED. PT CONTINUES TO FEEL DYPNEIC WITH ACTIVITY AND DESATURATES TO 83-85%. NOW THAT SHE IS BACK IN BED AND RESTING, SPO2:91%. PT DENIES FURTHER REQUESTS AT THIS TIME, CALL LIGHT WITHIN REACH.
--- NOTE | 2021-07-11 07:37 | NUR ---
REPORT RECEIVED FROM NIGHTSHIFT RN, WILL CONTINUE PLAN OF CARE.
--- NOTE | 2021-07-11 08:15 | NUR ---
PATIENT AWAKE IN BED. FACE AND HANDS WASHED. BREAKFAST DELIVERED, PATIENT REQUESTED ONLY MILK FOR BREAKFAST. CALL LIGHT IN REACH, NO OTHER NEEDS AT THIS TIME.
[2021-07-11] MEDS ORDERED: IPRAT-ALBUT 0.5-3 ML INH (08:18)
[2021-07-11] MEDS ORDERED: DAY TIME COLD-1 EAC1 PO (08:28)
[2021-07-11] MEDS ORDERED: NIGHT COLD-FLU1 EACH PO (08:28)
[2021-07-11] MEDS ORDERED: ALLERGY RELIEF4 MG PO (08:39)
[2021-07-11] MEDS ORDERED: PAIN RELIEVER500 M1 PO (08:39)
--- NOTE | 2021-07-11 09:03 | NUR ---
THIS RN IN TO ASSESS PT AND ADMINISTER SCHEDULED MEDICATIONS. PT IN BED AT THIS TIME ALERT AND ORIENTED ON THE HIGH FLOW NC AT 12L, SPO2 90%, IV ABX INFUSING. PT STATES SHE FEELS "SHAKY" AT THIS TIME AND STATES HER HEART RATE IS FAST, HR NOTED TO BE 100-105'S AT THIS TIME. HAND TREMORS NOTED. PT VITALS TAKEN, PT AFEBRILE AT THIS TIME. SCHEDULED MEDICATIONS ADMINISTERED AT THIS TIME, IV ABX STARTED AND INFUSING ORDERED (SEE MAR). PT DENIES PAIN AT THIS TIME AND DENIES THE NEED FOR HER CEPACOL LOZENGES. PT NOW IN ROOM AT THE BEDSIDE AT THIS TIME. PT REPORTS NO FURTHER NEEDS AT THIS TIME, WILL CONTINUE PLAN OF CARE. CALL LIGHT IN REACH, BED IN LOWEST POSITION, IV ABX INFUSING ORDERED, PT ON 12 L O2 HIGH FLOW NC, SPO2 90-94%.
[2021-07-11] MEDS ORDERED: RESTFUL LEGS PO (09:11)
--- NOTE | 2021-07-11 09:11 | NUR ---
MED REC COMPLETE
--- NOTE | 2021-07-11 09:51 | NUR ---
THIS RN IN TO CHECK ON PT, PT SITTING UP IN BED AWAKE AND ALERT, AT THE BEDSIDE. PT STILL ON 12L O2 HIGH FLOW NC, IV ABX INFUSING, SPO2 91%. PT REPORTS TREMORS HAVE SUBSIDED, PT DENIES PAIN AT THIS TIME BUT STATES SHE DOES HAVE PAIN IN HER CHEST WHEN TAKING DEEP BREATHS AT TIMES. PT PROVIDED WITH WATER AT THIS TIME AND REPORTS NO FURTHER NEEDS WHEN ASKED, WILL CONTINUE PLAN OF CARE. CALL LIGHT IN REACH, BED IN LOWEST POSITION, IN ROOM AT THE BEDSIDE.
--- NOTE | 2021-07-11 10:25 | NUR ---
RESPONDED TO PT CALL LIGHT, PT STATED SHE NEEDED TO VOID AT THIS TIME. PT ON 12L O2 AT THIS TIME AND WAS ABLE TO GET UP WITHOUT ASSISTANCE AND PIVOT TO THE BEDSIDE COMMODE. PT TITRATED UP TO 15L ON THE HIGH FLOW NC WHILE VOIDING PT BEGAN TO DESATURATE TO 85% WHILE ON 12L, PT ABLE TO MAINTAIN SPO2 AT 90% ON 15L, HR NOTED TO INC TO THE 90'S AT THIS TIME. LINENS CHANGED AT THIS TIME. PT NOW BACK IN BED, PT TITRATED BACK DOWN TO 12L O2 NC, AND IS NOW RESTING. PT REPORTS NO FURTHER NEEDS WHEN ASKED, CALL LIGHT IN REACH, BED IN LOWEST POSITION, IV ABX INFUSING, PT'S AT THE BEDSIDE, WILL CONTINUE PLAN OF CARE.
--- NOTE | 2021-07-11 11:01 | NUR ---
RESPONDED TO PT CALL LIGHT, PT STATED THAT HER IV PUMP WAS ALARMING. IV ANTIBIOTICS COMPLETED, PT SALINE LOCKED AT THIS TIME. PT REPORTS NO FURTHER NEEDS WHEN ASKED AND IS NOW RESTING IN BED. PT STILL ON 12L ON THE HIGH FLOW NC, PT'S AT THE BEDSIDE, CALL LIGHT IN REACH, BED IN LOWEST POSITION, WILL CONTINUE PLAN OF CARE.
--- NOTE | 2021-07-11 11:21 | NUR ---
THIS RN IN TO CHECK ON PT, LUNCH ORDER TAKEN AT THIS TIME, PT AWAKE AND ALERT ON THE HIGH FLOW NC AT THIS TIME AND REPORTS NO FURTHER NEEDS, WILL CONTINUE PLAN OF CARE. CALL LIGHT IN REACH, BED IN LOWEST POSITION.
--- NOTE | 2021-07-11 11:43 | NUR ---
THIS RN IN TO ASSESS PT AND TAKE VITALS. PT SITTING UP IN BED AT THIS TIME AWAKE AND ALERT ON 12L O2 HIGH FLOW NC. PT VITALS TAKEN AND PT ASSESSED, PT DENIES HAVING PAIN AT THIS TIME WHEN ASKED. PT SPO2 MAINTAINING AT 90-95% AT THIS TIME ON THE HIGH FLOW NC AND DENIES SHORTNESS OF BREATH AT THIS TIME. PT REPORTS NO FURTHER NEEDS WHEN ASKED, WILL CONTINUE PLAN OF CARE. CALL LIGHT IN REACH, BED IN LOWEST POSITION.
--- NOTE | 2021-07-11 11:46 | NUR ---
THIS RN IN TO ASSESS PT AND TAKE VITALS, PT LAYING IN BED AWAKE AND ALERT ON 12L O2 HIGH FLOW NC. PT VITALS TAKEN AT THIS TIME AND PT ASSESSED. PT DENIES SOB AT THIS TIME AND REPORTS NO PAIN WHEN ASKED. PT REPORTS NO NEEDS WHEN ASKED AT THIS TIME, WILL CONTINUE PLAN OF CARE. CALL LIGHT IN REACH, BED IN LOWEST POSITION, SPO2 AT 90%.
--- NOTE | 2021-07-11 12:30 | NUR ---
PATIENT SBA UP TO BSC FOR VOID. RT GABRIEL IN ROOM FOR NEB TREATMENT. PATIENT BACK TO BED, CALL JOSE WINSLOW
--- NOTE | 2021-07-11 14:35 | NUR ---
THIS RN IN ADMINISTER SCHEDULED IV ANTIBIOTIC. PT LAYING IN THE BED ON 10L HIGHFLOW NC AWAKE AND ALERT. UPON ASSESSMENT IV IN RIGHT AC WAS NOT PATENT AND LEAKING. NEW 22G IV PLACED IN RIGHT HAND PER PROTOCOL, PT TOLERATED IT WELL. IV FLUSHES AND NOW HAS SCHEDULED IV ABX INFUSING (SEE MAR). NONPATENT IV REMOVED FROM RIGHT AC, IV SITE WNL AFTER REMOVAL, CATHETER INTACT. PT REPORTS NO FURTHER NEEDS AT THIS TIME WHEN ASKED, WILL CONTINUE PLAN OF CARE. CALL LIGHT IN REACH, BED IN LOWEST POSITION, PT'S AT THE BEDSIDE.
--- NOTE | 2021-07-11 15:42 | NUR ---
THIS IN ROOM TO ASSIST PATIENT [facility] [place] [facility] PATIENTS O2 SATS REMAINED IN MID 80S, DURING TRANSFER. ONCE IN BED, PATIENT BEGAN TREMBLING AND FELT THOUGH SHE COULDN'T CATCH HER BREATH. AT THIS TIME, PATIENT WAS ALSO VERY FIXED ON TRYING TO STRAIGHTEN HER IV AND O2 TUBING WELL THE CALL LIGHT CORD. THIS LOOM SETTER ENCOURAGING PATIENT TO FOCUS ON HER BREATHING AND NOT THE CORDS AT THIS TIME, PATIENT STATES "I CAN'T HAVE THEM TANGLED AT ALL." PATIENT BECOMING MORE WORKED UP AND PANICKING CORD WERE ADJUSTED. AT BEDSIDE. O2 SATS NOW 93. ANTONELLA ANN NOTIFIED. CALL LIGHT IN REACH, NO OTHER NEEDS AT THIS TIME.
--- NOTE | 2021-07-11 16:18 | NUR ---
RT INFORMED THIS RN THAT PT WAS REPORTING THAT HER CHEST FELT HEAVY BUT DENIED PAIN. THIS RN IN TO ASSESS PT AND TAKE VITALS. VITALS TAKEN (SEE MAR), PT ASSESSED. S1 S2 HEARD, LUNGS CLEAR IN UPPER LOBES BILATERAL, CRACKLES HEARD IN THE BASES BILATERALLY, PT DENIES PAIN BUT REPORTS HEAVYNESS IN HER CHEST AND ABDOMEN. PT ALERT AND ORIENTED AND DENIES LIGHTHEADEDNESS AND STATES SHE FELT SIMILARLY YESTERDAY MORNING. PT STILL ON 10L HIGH FLOW NC, SPO2 92-94%. PT REPORTS NO FURTHER NEEDS AT TIME WHEN ASKED, WILL CONTINUE PLAN OF CARE. CALL LIGHT IN REACH, BED IN LOWEST POSITION, WILL INFORM DR BULLOCK ON ASSESSMENT FINDINGS.
--- NOTE | 2021-07-11 16:22 | NUR ---
DR. BULLOCK NOTIFIED OF PT'S ASSESSMENT REGARDING REPORTS OF CHEST HEAVYNESS, VITALS, AND LUNG SOUNDS, NEW ORDERS TO BE PLACED FOR LASIX, WILL CONTINUE PLAN OF CARE.
--- NOTE | 2021-07-11 17:08 | NUR ---
THIS RN IN TO ADMINISTER SCHEDULED MEDICATION, PT SITTING UP IN BED AWAKE AND ALERT ON 10L HIGH FLOW NC, AWAKE AND ALERT, IV ABX INFUSING ORDERED. PT REPORTS HER CHEST HEAVYNESS WELL HER HAND SHAKING HAS DECREASED/IMPROVED. SCHEDULED LASIX ADMINISTERED AT THIS TIME (SEE NOV). PT REPORTS NO FURTHER NEEDS AT THIS TIME AND WAS PROVIDED WITH WATER PER HER REQUEST. CALL LIGHT IN REACH, BED IN LOWEST POSITION, IV ABX INFUSING ORDERED, WILL CONTINUE PLAN OF CARE.
--- NOTE | 2021-07-11 17:28 | NUR ---
RESPONDED TO CALL LIGHT, PT UP TO THE BEDSIDE COMMODE TO VOID AT THIS TIME. PT TITRATED UP TO 15L ON THE HIGHFLOW TO MAINTAIN SATURATIONS, PT DID BECOME SOB WHILE TRANSFERRING BUT RECOVERED ONCE SHE WAS BACK IN BED RESTING. PT TITRATED BACK DOWN TO 10L. PT DENIEDS WANTING DINNER AND ONLY WANTED MILK. PT PROVIDED WITH MILK AT THIS TIME PER HER REQUEST AND IS NOW DRINKING IT. PT REPORTS NO FURTHER NEEDS WHEN ASKED, IV ABX INFUSING ORDERED, CALL LIGHT IN REACH, BED IN LOWEST POSITION, WILL CONTINUE PLAN OF CARE.
--- NOTE | 2021-07-11 18:15 | NUR ---
THIS RN IN TO PREPARE PT FOR TRANSFER TO THE MEDICAL SURGICAL FLOOR. PT GETTING UP TO THE BED FROM THE BEDSIDE COMMODE, ANTONELLA FINLEY IN ROOM ASSISTING PT. LEADS TAKEN OFF AT THIS TIME AND BELONGINGS GATHERED. PT REPORTS NO NEEDS AT THIS TIME AND IS ON 10L O2 NC, SPO2 92-94%, WILL CONTINUE PLAN OF CARE. CALL LIGHT IN REACH, BED IN LOWEST POSITION, IV ABX INFUSING ORDERED.
--- NOTE | 2021-07-11 18:54 | NUR ---
THIS RN IN TO TRANSFER PT TO THE MEDICAL SURGICAL FLOOR. PT AWAKE AND ALERT ON 10L O2 NC. PT BELONGINGS GATHERED AND PT TRANSFERRED VIA STRETCHER ON 10L TO ROOM 113. RN IN ROOM 113 TO RECEIVE PT AND CONTINUE PLAN OF CARE. PT NOW IN ROOM, IV ABX INFUSING, RN IN ROOM WITH PT TO CONTINUE PLAN OF CARE.
--- NOTE | 2021-07-11 18:57 | NUR ---
Pt arrives to med surg unit via stretcher. A+O, VSS, on 10L NC with SPO2 95%. Oriented to room and call light system, no needs at this time.
--- NOTE | 2021-07-11 20:51 | NUR ---
PATIENT VITALS IS AND OS CHARTED. PATIENT BOARD UPDATED. FRESH ICE WATER PROVIDED, ROOM TIDIED, CAll LIGHT LEFT WITHIN REACH, NO OTHER IMMEDIATE NEEDS AT THIS TIME.
--- NOTE | 2021-07-11 21:45 | NUR ---
ASSESSMENT COMPLETED. PT VERY ANXIOUS ABOUT HER NOSE FEELING "STUFFED", NOTIFIED AND PRN MED ORDER GIVEN FOR MUCINEX 600MG PO BID PRN, ORDER REPEATED BACK BY PHONE. SCHEDULED MEDS PROVIDED. GCS 15, A&O X4. LUNGS CLEAR IN UPPER LOBES AND CRACKLES IN LOWER LOBES. HIGH FLOW NC @ 10L, PT COMPLAINS THAT IT IS BLOWING TOO MUCH AIR. NC PLACED AT 8L, SPO2 92%. EDUCATION PROVIDED ABOUT O2 NEEDS. IV WNL, CDI, FLUSHED WELL. CMS INTACT. NO OTHER NEEDS AT THIS TIME. CALL LIGHT IN REACH.
--- NOTE | 2021-07-11 22:50 | NUR ---
PRN CONGESTION MED PROVIDED. RT IN ROOM.
--- NOTE | 2021-07-11 23:25 | NUR ---
UP TO BSC, VOIDED LARGE AMOUNT OF CLEAR URINE. BACK TO BED. TOLERATED WELL, O2 HIGH FLOW IN PLACE. FRESH WATER GIVEN ON REQUESTS. ABENA HOPPER
--- NOTE | 2021-07-12 00:28 | NUR ---
ASSISTED PATIENT TO BSC. CHARTED PATIENT VITALS AND IS AND OS. PROVIDED PATIENT WITH FRESH ICE WATER, ROOM TIDIED, CALL LIGHT LEFT WITHIN REACH, NO OTHER IMMEDIATE NEEDS AT THIS TIME.
--- NOTE | 2021-07-12 02:32 | NUR ---
PT RESTING IN BED. NC @ 8L. RR EVEN, UNLABORED. CALL LIGHT IN REACH.
--- NOTE | 2021-07-12 04:30 | NUR ---
PT RESTING IN BED, RR EVEN, UNLABORED. CPOX 97% ON 8L HIGH FLOW NC. CALL LIGHT IN REACH.
--- NOTE | 2021-07-12 06:03 | NUR ---
ASSESSMENT, VS AND I&O COMPLETED. SCHEDULED MEDS PROVIDED. IV WNL. LUNGS CLEAR BUT DIMINISHED. PT HAS SOB WITH ACTIVITY, SPO2 92% ON 10L HIGH FLOW NC. PT UP TO BSC AND BACK TO BED. NO OTHER NEEDS AT THIS TIME. CALL LIGHT IN REACH.
--- NOTE | 2021-07-12 08:20 | NUR ---
Spoke with Caitlyn. States she is doing ok since last discharge. Currently has pneumonia, but feels better following covid. She cont. on 9L of 02 at home, uses a scooter, and is now driving her. She has a ramp into her home. States they are finacially ok and denies need for any new DME. Plans on dc to home when cleared and 02 need has returned to 9-10L. She cont. to use [employer] and this is working well for her. Spouse will drive her home.
--- NOTE | 2021-07-12 09:30 | NUR ---
REPORT RECEIVED FROM NIGHT RN AND PT. CARE RESUMED. PT. IS ALERT AND ORIENTED. PT. IS TREMULOUS AND STATES TREMORS STARTED SINCE HOSPITAL ADMISSION AND IS DUE TO ANXIETY. WILL CONTINUE TO MONITOR. IV SITE WNL AND FLUSHES WELL. PT. DENIES PAIN OR SOB WITH REST. 02 SAT IS 95% AND TITRATED TO 9L HF NC. DISCUSSED POC AND MEDS. LEFT RESTING WITH CALL LIGHT IN REACH.
--- NOTE | 2021-07-12 09:35 | NUR ---
RNs are working with patient. Vitals, I&Os are complete. Patient oral supplies have been stocked in room.
--- NOTE | 2021-07-12 13:00 | NUR ---
STERILE WATER ADDED TO HF NC CANNISTER. PT. DENIES PAIN AT THIS TIME OR SOB. 02 SAT IS 93% ON 9L. CRACKLES AUSCULTATED IN RLL AND LUNG SOUNDS REMAIN UNCHANGED. PT. LEFT RESTING WITH CALL LIGHT IN REACH.
--- NOTE | 2021-07-12 13:45 | NUR ---
PT. USED CALL LIGHT APPROPRIATELY FOR BEEPING IV. IV SITE WNL AND RESTARTED. PT. HAS BEEN PICKING AT IV AND EDUCATED ON IV. LEFT RESTING WITH CALL LIGHT IN [facility].
--- NOTE | 2021-07-12 17:32 | NUR ---
ROUNDING ON PT. IV ABX INFUSING. IV SITE WNL. PT. DENIED FURTHER NEEDS. LEFT RESTING WITH CALL LIGHT IN REACH.
--- NOTE | 2021-07-12 19:00 | NUR ---
SHIFT REPORT RECEIVED FROM BINH BERMAN. PT RESTING IN BED, SPOUSE IN ROOM. NC @ 9L HIGH FLOW NC. SPO2 95%. CALL LIGHT IN REACH.
--- NOTE | 2021-07-12 21:30 | NUR ---
ASSESSMENT COMPLETED. GCS 15, A&O X4. SPO2 95% ON 9L HIGH FLOW NC. LUNGS CLEAR IN UPPER LOBE AND DIM IN LOWER LOBES. ABD SOFT, NONTENDER, BOWEL TONES ACTIVE. CMS INTACT. IV WNL, CDI, FLSUHED WELL. SCHEDULED MEDS PROVIDED. PRN CONGESTION, PAIN AND SLEEP MEDS PROVIDED. SPO2 94%. NO OTHER NEEDS. CALL LIGHT IN REACH.
--- NOTE | 2021-07-12 23:12 | NUR ---
PT RESTING IN BED. NC @ 9L. CALL LIGHT IN REACH.
--- NOTE | 2021-07-12 23:13 | NUR ---
PT UP TO VOID AT THIS TIME, ASSISTED WITH IV POLE, OTHERWISE PT IS FREE TO BE ADLIB TO THE TOILET, NO FURTHER NEEDS AT THIS TIME
--- NOTE | 2021-07-12 23:24 | NUR ---
PT RESTING IN BED. NC @ 9L. CALL LIGHT IN REACH.
--- NOTE | 2021-07-13 01:48 | NUR ---
PT RESTING IN BED,CALL LIGHT IN REACH.
--- NOTE | 2021-07-13 02:24 | NUR ---
PT CALLED, SAID HER OXYGEN WAS GOING INTO NOSE TOO FAST, CURRENTLY AT 9L, 95%. LOWERED TO 8L PT SAID BETTER. SUGGESTED TO PT TO TRY TO SLEEP SHE SAID SHE COULDN'T SLEEP BECAUSE OF THE OXYGEN FAST IN HER NOSE.
--- NOTE | 2021-07-13 04:10 | NUR ---
PT RESTING IN BED. CALL LIGHT IN REACH.
--- NOTE | 2021-07-13 06:25 | NUR ---
ASSESSMENT COMPLETED. SCHEDULED MEDS PROVIDED. PT DENIES PAIN AND SOB. LUNGS CLEAR. NC @ 8L, SPO2 94%. SPOUSE IN ROOM. TUBE ROOM CASHIER IN ROOM FOR CARES.
--- NOTE | 2021-07-13 09:04 | NUR ---
Patient vitals, I&Os are complete. RNs and Student Nurse are in the room. Call light is in room.
[2021-07-13] MEDS ORDERED: LEVOFLOXACIN750 MG PO (09:35)
[2021-07-13] MEDS ORDERED: SLEEP AID25 M2 PO (10:08)
[2021-07-13] MEDS ORDERED: PONARIS NASAL E30 ML NAS (10:08)
[2021-07-13] MEDS ORDERED: ANTACID200 MG PO (10:09)
[2021-07-13] MEDS ORDERED: METOPROLOL TART25 MG PO (10:15)
--- NOTE | 2021-07-13 10:40 | NUR ---
Spoke with Caitlyn and she is feeling well. 02 use is now at 7L. She wants to go home and has agreed. I will request Rhysdilan bring a tank with a high flow concentrator for pt to discharge to home. Pt calling spouse.
--- NOTE | 2021-07-13 11:00 | NUR ---
Notified 02 has arrived and pt will dc.
--- NOTE | 2021-07-13 11:30 | NUR ---
PT. LEFT WITH ALL BELONGINGS VIA WHEELCHAIR WITH AND MACHINE HEEL SEAT LASTER. ALL DISCHARGE INSTRUCTIONS REVIEWED AND QUESTIONS ANSWERED. PT. LEFT WITH O2 TANK ON 8L NC. VITALS STABLE.
--- NOTE | 2021-07-13 12:08 | NUR ---
PT WAS LEAVING IN FOR DC, SHE STOPPED, THANKED STAFF AND WAVED FATUMA. GAVE ENCOURAGEMENT AND BLESSING
--- NOTE | 2021-07-14 01:22 | NUR ---
PT CALLED HOSPITAL AND STATES SHE WAS DC'D EARLIER TODAY AND INSTRUCTED TO TAKE 3 OF 25MG TABLETS OF METOPROLOL FOR A DOSE OF 75MG TOTAL. PT STATES SHE TOOK THIS EARLIER TODAY AROUND 2PM. PT CHECKED HER PULSE TONIGHT AND IT WAS 110/MIN SO SHE TOOK 1/2 TAB OF 200MG METOPROLOL JUST AFTER 1AM FOR A DOSE OF 100MG. ADVISED PT TO CALL EMS OR COME TO ER IF SHE HAS S/S OF HYPOTENSION AND/OR LOW HR OR ANY OTHER STRANGE SENSATIONS. PT STATES SHE CAN CHECK HER BP AND HR AT HOME AND WILL MONITOR. REMINDED PT TO BECAREFUL OF STANDING TOO QUICKLY AND WATCH FOR ORTHOSTATIC HYPOTENSION. PT STATES UNDERSTANDING AND WILL SEEK HELP IF SHE FEELS SHE NEEDS IT. REMINDED PT TO FOLLOW DR'S ORDER FOR THE METOPROLOL AND CALL EMS IF CONCERNED OR S/S OCCUR. PT CONFIRMS UNDERSTANDING.
== END 2021-07-13 11:45 | disposition home or self-care (01) | DRG 193 ==
LOC: ED 08:57 → CCU 13:53 → MS 13:53 → CCU 14:00 → MS 07-11 18:26
PROVIDERS: ADMIT Student in an Organized Health Care Education/Training Program; ATTEND Student in an Organized Health Care Education/Training Program
DX: J15.4 Pneumonia due to other streptococci (principal); J96.01 Acute respiratory failure with hypoxia; J44.0 Chronic obstructive pulmonary disease with (acute) lower respiratory infection; J44.1 Chronic obstructive pulmonary disease with (acute) exacerbation; Z20.822 Contact with and (suspected) exposure to COVID-19; Z66 Do not resuscitate; U09.9 Post COVID-19 condition, unspecified; E78.5 Hyperlipidemia, unspecified; I10 Essential (primary) hypertension; E03.9 Hypothyroidism, unspecified; M19.90 Unspecified osteoarthritis, unspecified site; G43.909 Migraine, unspecified, not intractable, without status migrainosus; Z87.891 Personal history of nicotine dependence; Z98.890 Other specified postprocedural states; Z90.49 Acquired absence of other specified parts of digestive tract; Z90.89 Acquired absence of other organs; Z90.710 Acquired absence of both cervix and uterus; Z88.5 Allergy status to narcotic agent; Z88.8 Allergy status to other drugs, medicaments and biological substances; Z79.899 Other long term (current) drug therapy; Z79.82 Long term (current) use of aspirin
CPT/HCPCS: 36600; 71045; 71260; 80048; 80053; 82803; 83605; 83735; 83880; 84484; 85025; 87040; 87070; 87205; 93005; 93010; 94640; 94760; 96375; 99285-25; C9803; J0692; J0696; J1100; J1650; J1940; J1956; J2920; J2930; Q9967; U0003

== ENCOUNTER 2021-07-14 17:29 | Emergency (ER) | payer MEDICARE, OTHER ==
[~2021-07-14] VITALS: Ht 165.1 cm; Wt 83.0 kg
[~2021-07-14 17:29] MED LIST changes: +ALLERGY RELIEF4 MG PO; +ANTACID200 MG PO; +DAY TIME COLD-1 EAC1 PO; +METOPROLOL TART25 MG PO; +NIGHT COLD-FLU1 EACH PO; +PAIN RELIEVER500 M1 PO; +PONARIS NASAL E30 ML NAS; +RESTFUL LEGS PO; +SLEEP AID25 M2 PO
--- OUTSIDE RECORDS SUMMARY | 2021-07-14 17:38 | XMS ---
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 Kareen VISIT COUNT (12 MO.) [address] [place] [address] TOTAL 5 NOTE: Visits indicate total known visits. ED/UCC VISIT TRACKING (12 MO.) 07/14/2021 17:30 [facility] [place] TYPE: Emergency COMPLAINT: - CHEST FEELS HEAVY, HIGH BLOOD PREASURE 07/10/2021 08:57 [facility] [place] TYPE: Emergency COMPLAINT: - DIFFICULTY BREATHING [...] not intractable, without status migrainosus - Other long term care phlebotomist (current) drug therapy - Shortness of breath 05/23/2021 12:21 [facility] [place] TYPE: Emergency COMPLAINT: - PNEUMONIA, LOW O2 SATS DIAGNOSES: - Allergy status to narcotic agent - Pneumonia, unspecified organism - Unspecified osteoarthritis, unspecified site - Chronic respiratory failure with hypoxia - Migraine, unspecified, not intractable, without status migrainosus - Essential (primary) hypertension - Other long term care phlebotomist (current) drug therapy - Acute and chronic respiratory failure with hypoxia - Dyspnea, unspecified - Acute and chronic respiratory failure with hypoxia - Personal history of nicotine dependence - Chronic obstructive pulmonary disease, unspecified - long term acute care registered nurse (current) use of aspirin 04/21/2021 09:39 [facility] [place] TYPE: Emergency COMPLAINT: - NAUSEA, VOMITING INPATIENT VISIT TRACKING (12 MO.) 07/10/2021 13:53 [facility] TYPE: Medical Surgical COMPLAINT: - PNA 04/21/2021 15:23 [facility] TYPE: Medical Surgical COMPLAINT: - ACUTE ON CHRONIC RESPIRATORY FAILURE DIAGNOSES: - Chronic obstructive pulmonary disease with (acute) lower respiratory infection - Dependence on supplemental oxygen - Allergy status to other drugs, medicaments and biological substances - Hypokalemia - Personal history of nicotine dependence - Supraventricular tachycardia - long term acute care registered nurse (current) use of aspirin - Procedure and [...] cervix and uterus - COVID-19 - Other long term care phlebotomist (current) drug therapy - Acute and chronic respiratory failure with hypoxia - Acquired absence of other specified parts of digestive tract - Essential (primary) hypertension - Unspecified osteoarthritis, unspecified site - Other long term care phlebotomist (current) drug therapy - long term acute care registered nurse (current) use of aspirin - Hypokalemia - Allergy status to narcotic agent - Hypothyroidism, unspecified - long term acute care registered [...] on supplemental oxygen - Essential (primary) hypertension [email or web address]
--- NOTE | 2021-07-14 19:35 | EKG ---
[facility] [address] [facility] [place] [address] Signed Sinus tachycardia with frequent premature ventricular complexes Otherwise normal ECG When compared with ECG of 10-JUL-2021 09:07, premature ventricular complexes are now present Criteria for Inferior infarct are no longer present Nonspecific T wave abnormality no longer evident in Anterior leads Confirmed by CHACE BULLOCK MD ([id number]) on 07/14/2021 7:35:39 PM Electronically Signed By: CHACE BULLOCK MD 07/14/21 1935 PATIENT NAME: KMKARLY V Electrocardiogram DATE OF : 49 PHYSICIAN: CHACE BULLOCK MD REPORT #: [id number] REPORT IS CONFIDENTIAL AND NOT TO BE RELEASED WITHOUT AUTHORIZATION
[2021-07-15] MEDS ORDERED: ALBUTEROL2.5 MG/3 M INH (00:27)
[2021-07-15] MEDS ORDERED: PREDNISONE20 MG PO (00:27)
== END 2021-07-15 00:35 | disposition home or self-care (01) ==
LOC: ED 17:29
DX: J18.9 Pneumonia, unspecified organism (principal); J44.1 Chronic obstructive pulmonary disease with (acute) exacerbation; I10 Essential (primary) hypertension; M19.90 Unspecified osteoarthritis, unspecified site; G43.909 Migraine, unspecified, not intractable, without status migrainosus; Z20.822 Contact with and (suspected) exposure to COVID-19; Z86.16 Personal history of COVID-19; Z87.891 Personal history of nicotine dependence; Z88.5 Allergy status to narcotic agent; Z88.6 Allergy status to analgesic agent; Z79.899 Other long term (current) drug therapy; Z79.82 Long term (current) use of aspirin
CPT/HCPCS: 71045; 71260; 80053; 83735; 83880; 84484; 85025; 93005; 93010; 94640; 99285-25; C9803; J2930; U0003

== ENCOUNTER 2022-01-18 10:00 | Emergency (ER) | payer MEDICARE, OTHER ==
[~2022-01-18] VITALS: Ht 165.1 cm; Wt 92.1 kg
[~2022-01-18 10:00] MED LIST changes: +ALBUTEROL2.5 MG/3 M INH
--- OUTSIDE RECORDS SUMMARY | 2022-01-18 10:08 | XMS ---
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 Kareen VISIT COUNT (12 MO.) [facility] TOTAL 6 NOTE: Visits indicate total known visits. ED/UCC VISIT TRACKING (12 MO.) 01/18/2022 10:01 [facility] TYPE: Emergency COMPLAINT: - DIFFICULTY BREATHING 07/14/2021 17:30 [facility] TYPE: Emergency COMPLAINT: - CHEST FEELS HEAVY, HIGH BLOOD PREASURE DIAGNOSES: - Allergy status to analgesic agent - Essential (primary) hypertension - Shortness of breath - Chronic obstructive pulmonary disease with (acute) exacerbation - carpet jack (current) use of aspirin - Other ror engineer (current) drug therapy - Pneumonia, unspecified organism - Allergy status to narcotic agent - Unspecified osteoarthritis, unspecified site - Migraine, unspecified, not intractable, without status migrainosus - Personal history of nicotine dependence 07/10/2021 08:57 [facility] [place] TYPE: Emergency COMPLAINT: - DIFFICULTY BREATHING 05/23/2021 23:57 [facility] [place] TYPE: Emergency COMPLAINT: - RAPID HEART RATE DIAGNOSES: - carpet jack (current) use of aspirin - Essential (primary) hypertension - Allergy status to other drugs, medicaments and biological substances - Chronic obstructive pulmonary disease with (acute) exacerbation - Personal history of nicotine dependence - Allergy status to narcotic agent - Migraine, unspecified, not intractable, without status migrainosus - Other ror engineer (current) drug therapy - Shortness of breath 05/23/2021 12:21 [facility] TYPE: Emergency COMPLAINT: - PNEUMONIA, LOW O2 SATS DIAGNOSES: - Allergy status to narcotic agent - Pneumonia, unspecified organism - Unspecified osteoarthritis, unspecified site - Chronic respiratory failure with hypoxia - Migraine, unspecified, not intractable, without status migrainosus - Essential (primary) hypertension - Other group home (current) drug therapy - Acute and chronic respiratory failure with hypoxia - Dyspnea, unspecified - Acute and chronic respiratory failure with hypoxia - Personal history of nicotine dependence - Chronic obstructive pulmonary disease, unspecified - penitentiary (current) use of aspirin 04/21/2021 09:39 [facility] TYPE: Emergency COMPLAINT: - NAUSEA, VOMITING INPATIENT VISIT TRACKING (12 MO.) 07/10/2021 13:53 [facility] TYPE: Medical Surgical COMPLAINT: - PNA DIAGNOSES: - carpet jack (current) use of aspirin - Acquired absence of other specified parts of digestive tract - Do not resuscitate - Migraine, unspecified, not intractable, without status migrainosus - Hyperlipidemia, unspecified - Chronic obstructive pulmonary disease with (acute) exacerbation - Unspecified osteoarthritis, unspecified site - Hypothyroidism, unspecified - Acquired absence of both cervix and uterus - Hypothyroidism, unspecified - Personal history of nicotine dependence - Allergy status to narcotic agent - Acquired absence of other organs - Chronic obstructive pulmonary disease with (acute) exacerbation - Essential (primary) hypertension - penitentiary (current) use of aspirin - Unspecified osteoarthritis, unspecified site - POST COVID-19 CONDITION, UNSPECIFIED - Other group home (current) drug therapy - Personal history of nicotine dependence - Allergy status to other drugs, medicaments and biological substances - Allergy status to other drugs, medicaments and biological substances - Acquired absence of both cervix and uterus - Chronic obstructive pulmonary disease with (acute) lower respiratory infection - Acute respiratory failure with hypoxia - Other group home (current) drug therapy - Do not resuscitate - Acquired absence of other organs - Acquired absence of other specified parts of digestive tract - Other specified postprocedural states - Hyperlipidemia, unspecified - Acute respiratory failure with hypoxia - Allergy status to narcotic agent - Pneumonia due to other streptococci - Acute and chronic respiratory failure with hypoxia - Essential (primary) hypertension - Chronic obstructive pulmonary disease with (acute) lower respiratory infection - Other specified postprocedural states - Migraine, unspecified, not intractable, without status migrainosus 04/21/2021 15:[address] [facility] [place] TYPE: Medical Surgical COMPLAINT: - ACUTE ON CHRONIC RESPIRATORY FAILURE DIAGNOSES: - Chronic obstructive pulmonary disease with (acute) lower respiratory infection - Dependence on supplemental oxygen - Allergy status to other drugs, medicaments and biological substances - Hypokalemia - Personal history of nicotine dependence - Supraventricular tachycardia - penitentiary (current) use of aspirin - Procedure and [...] cervix and uterus - COVID-19 - Other ror engineer (current) drug therapy - Acute and chronic respiratory failure with hypoxia - Acquired absence of other specified parts of digestive tract - Essential (primary) hypertension - Unspecified osteoarthritis, unspecified site - Other group home (current) drug therapy - penitentiary (current) use of aspirin - Hypokalemia - Allergy status to narcotic agent - Hypothyroidism, unspecified - carpet jack (current) use of oral hypoglycemic drugs - [...] - Acquired absence of other organs - penitentiary (current) use of oral hypoglycemic drugs - Other specified postprocedural states - Hypo-osmolality and hyponatremia - Dependence on supplemental oxygen - Essential (primary) hypertension [email or web address]
[2022-01-18] MEDS ORDERED: CHLORTHALIDONE25 MG PO (10:18)
--- NOTE | 2022-01-20 17:09 | EKG ---
[facility] [address] [place] [address] Signed Sinus tachycardia Inferior infarct , age undetermined Abnormal ECG When compared with ECG of 14-JUL-2021 17:48, premature ventricular complexes are no longer present Inferior infarct is now present Confirmed by FRANCIE KRUEGER MD ([id number]) on 01/20/2022 5:08:56 PM Electronically Signed By: FRANCIE KRUEGER MD 01/20/22 1709 PATIENT NAME: KARLY BARBOUR V Electrocardiogram DATE OF : 49 PHYSICIAN: FRANCIE KRUEGER MD REPORT #: [id number] REPORT IS CONFIDENTIAL AND NOT TO BE RELEASED WITHOUT AUTHORIZATION
--- NOTE | 2022-01-20 17:09 | EKG ---
[facility] [address] [facility] [place], [place] [address] Signed Sinus tachycardia Inferior infarct (cited on or before 10-JUL-2021) Abnormal ECG When compared with ECG of 18-JAN-2022 10:23, (Unconfirmed) No significant change was found Confirmed by FRANCIE KRUEGER MD ([id number]) on 01/20/2022 5:09:16 PM Electronically Signed By: FRANCIE KRUEGER MD 01/20/22 1709 PATIENT NAME: KMKARLY V Electrocardiogram DATE OF : 49 PHYSICIAN: FRANCIE KRUEGER MD REPORT #: [id number] REPORT IS CONFIDENTIAL AND NOT TO BE RELEASED WITHOUT AUTHORIZATION
== END 2022-01-18 21:19 | disposition short-term general hospital (02) ==
LOC: ED 10:00
DX: I21.4 Non-ST elevation (NSTEMI) myocardial infarction (principal); J44.1 Chronic obstructive pulmonary disease with (acute) exacerbation; E87.1 Hypo-osmolality and hyponatremia; C34.90 Malignant neoplasm of unspecified part of unspecified bronchus or lung; I10 Essential (primary) hypertension; M19.90 Unspecified osteoarthritis, unspecified site; E03.9 Hypothyroidism, unspecified; G43.909 Migraine, unspecified, not intractable, without status migrainosus; Z87.891 Personal history of nicotine dependence; Z88.5 Allergy status to narcotic agent; Z88.8 Allergy status to other drugs, medicaments and biological substances; Z79.52 Long term (current) use of systemic steroids; Z79.899 Other long term (current) drug therapy; Z79.82 Long term (current) use of aspirin; Z79.51 Long term (current) use of inhaled steroids
CPT/HCPCS: 36415; 71045; 71260; 80053; 83605; 83880; 84484; 85025; 85379; 93005; 93010; 94640; 99285-25; C9803; J0456; J0696; J1644; J2930; J7040; J7060; Q9967; U0003